=== PATIENT | male | born 1965 | race Caucasian/White ===

== ENCOUNTER 2020-05-12 07:22 | Outpatient (CLI) | payer OTHER, SELFPAY ==
--- NOTE | ~2020-05-12 | NM_ITS ---
EXAMINATION: NM hepatobiliary w pharm DATE: 05/12/2020 10:50 INDICATION: Right upper quadrant abdominal pain COMPARISON: None. TECHNIQUE: 5.2 mCi Tc-99m mebrofenin (Choletec) was administered intravenously. Scintigraphic images of the abdomen were obtained for one hour. 2.6 mcg sincalide (Kinevac) was administered by slow intr avenous infusion, and imaging was continued for 30 minutes. Gallbladder ejection fraction was calcula james by the technologist. FINDINGS: There is normal clearance of radiotracer from the blood pool. There is homogeneous tracer uptake by t he liver. Activity progresses to the gallbladder and bowel. The gallbladder ejection fraction (GBEF) is 94% (normal 10-90%, but most patient with gallbladder dysfunction have GBEF < 35% which does over lap with the normal range). IMPRESSION: 1. Elevated gallbladder ejection fraction is 94% consistent with biliary hyperkinesis. Reviewed, dictated and finalized at location A. IMPRESSION: 1. Elevated gallbladder ejection fraction is 94% consistent with biliary hyper kinesis.
== END 2020-05-12 07:23 | disposition home or self-care (01) ==
LOC: ANHIMG 07:26
PROVIDERS: PCP Family Medicine Adolescent Medicine; Visit Provider Internal Medicine Gastroenterology
DX: R10.11 Right upper quadrant pain (principal)
CPT/HCPCS: 78227; A9537; J2805

== ENCOUNTER 2021-05-30 13:44 | Emergency (ER) | payer OTHER, SELFPAY ==
--- NOTE | ~2021-05-30 | CT_ITS ---
EXAMINATION: CT abdomen pelvis w con DATE: 05/30/2021 18:47 INDICATION: Lower abdominal pain. TECHNIQUE: Computed tomography (CT) of the abdomen and pelvis was performed with 100 mL Omnipaque 350 intravenous contrast. Automated exposure control and iterative reconstruction technique were employe d. The dose-length product was 1645.98 mGy-cm. COMPARISON: CT abdomen and pelvis 10/26/2016 FINDINGS: The visualized portions of the lung bases demonstrate minimal atelectasis. No pleural effus ion. The heart size is normal. No pericardial effusion. There is diffuse hepatic steatosis. The gallb ladder, spleen, pancreas, adrenal glands, and kidneys are normal. The prostate is mildly enlarged. Th ere is diverticulosis of the colon without evidence of diverticulitis. There are no dilated loops of bowel. The appendix is normal. There are no pathologically enlarged lymph nodes. There is no free int raperitoneal fluid. There is moderate lumbar spondylosis. IMPRESSION: 1. Diffuse hepatic steatosis. Reviewed, dictated and finalized at location A.
[2021-05-30 13:57] VITALS: BP 147/82; PULSE 97; RESP 20; TEMP 36.2; O2SAT 98
[2021-05-30 14:21] LABS: Basophils Absolute Auto 0.1 K/mm3 (0.0-0.1); Basophils Percent Auto 0.5 % (0.2-1.2); Eosinophils Absolute Auto 0.2 K/mm3 (0-0.3); Eosinophils Percent Auto 1.8 % (0-4.4); Hematocrit 40.2 % (42.0-52.0); Hemoglobin 13.8 g/dL (14.0-18.0); Immature Granulocyte Absolute 0.03 K/mm3 (0.00-0.031); Immature Granulocyte Percent A 0.3 % (0-0.5); Lymphocytes Percent Auto 15.6 % (18.3-44.2); Mean Corpuscular HGB Conc 34.3 g/dl (32-36); Mean Corpuscular Hemoglobin 30.6 pg (26-34); Mean Corpuscular Volume 89.1 fl (80-100); Mean Platelet Volume 8.5 fl (7.4-10.4); Monocytes Absolute Auto 0.9 K/mm3 (0.1-0.6); Monocytes Percent Auto 8.1 % (2.6-8.5); Neutrophils Percent Auto 73.7 % (45.5-73.1); Platelet Count Result 246 k/mm3 (150-375); Red Blood Count 4.51 M/mm3 (4.6-6.20); Red Cell Distribution Width 12.9 % (11.5-14.5); White Blood Count 10.9 K/mm3 (4.5-10.0)
[2021-05-30 14:35] LABS: Alanine Aminotransferase 68 U/L (4-50); Alkaline Phosphatase 65 U/L (38-126); Anion Gap 11 mmol/L (8-16); Aspartate Amino Transferase 50 U/L (17-59); Bilirubin,Total 0.6 mg/dL (0.2-1.3); Blood Urea Nitrogen 14 mg/dL (9-20); Calcium 9.7 mg/dL (8.4-10.2); Carbon Dioxide 25 mmol/L (22-30); Chloride 93 mmol/L (98-107); Estimated CRCL calculation 110 ml/min; Estimated Glomerular Filt Rate > 60; Glucose 121 mg/dL (65-110); Lipase 81 U/L (23-300); Potassium 4.4 mmol/L (3.4-5.0); Sodium 129 mmol/L (137-145)
[2021-05-30 15:18] LABS: Add Urine Microscopic? YES; Appearance Urine Clear (Clear); Bilirubin Urine Negative (Negative); Blood Urine 1+ (Negative); Color Urine Straw (Yellow); Glucose Urine UA Negative (Negative); Ketones Urine Negative (Negative); Leukocyte Esterase Ur Negative LEU/UL (Negative); Nitrate Urine Negative (Negative); Protein Urine Negative (Negative); RBC Urine 0-2 /hpf (0-2); Urobilinogen Urine Negative mg/dL (<2.0)
[2021-05-30 15:23] LABS: Specific Grav Ur 1.004 (1.001-1.035)
--- NOTE | 2021-05-30 15:43 | PC.NURSE ---
brought back to triage bay 2 for a blood sugar
[2021-05-30 15:47] LABS: Glucose Point of Care 111 mg/dl (65-105)
[2021-05-30 17:40] VITALS: BP 165/81; PULSE 100; RESP 20; O2SAT 97
--- NOTE | 2021-05-30 18:01 | ED.ABDPAIN ---
HPI - Abdominal Pain General Chief Complaint: Abdominal Pain Stated Complaint: lower abd pain Time Seen by Provider: 05/30/21 17:45 Source: patient Mode of arrival: ambulatory Limitations: no limitations History of Present Illness HPI narrative: Patient is a 55-year-old male complaining of lower abdominal pain, sharp, 9 out of 10, nonradiating, started this afternoon. Denies any chest pain, shortness of breath, nausea, vomiting, fever, chills or urinary symptoms. Related Data Home Medications Medication Instructions Recorded Confirmed lisinopril-hydrochlorothiazide tablet 05/30/21 05/30/21 metformin mg PO 05/30/21 metoprolol tartrate 05/30/21 tizanidine mg 05/30/21 Allergies Allergy/AdvReac Type Severity Reaction Status Date / Time metoclopramide Allergy Unknown Agitated Verified 05/30/21 18:03 shrimp Allergy Unknown Verified 05/30/21 18:03 BEE STING Allergy Mild Unknown Uncoded 05/30/21 18:03 Review of Systems Review of Systems: All systems reviewed & are unremarkable except as noted in HPI and below Constitutional: Constitutional: Denies body ache(s), Denies chills, Denies excessive sweating, Denies fatigue, Denies fever(s), Denies headache(s), Denies lethargy, Denies malaise, Denies weakness and Denies weight loss Eyes: Eyes: Denies blurry vision, Denies change in vision and Denies loss of vision ENT: Denies dizziness, Denies ear discharge, Denies headache(s), Denies lip swelling, Denies epistaxis, Denies nasal congestion, Denies neck pain, Denies throat swelling and Denies tongue swelling Cardiovascular: Cardiovascular: Denies chest pain, Denies chest pain at rest, Denies chest pain with activity, Denies diaphoresis, Denies rapid heart rate, Denies edema, Denies irregular heart rhythm, Denies lightheadedness, Denies palpitations, Denies dyspnea and Denies dyspnea on exertion Respiratory: Respiratory: Denies chest congestion, Denies cough, Denies hemoptysis, Denies dyspnea and Denies dyspnea on exertion Gastrointestinal: Gastrointestinal: Denies melena, Denies hematochezia, Denies diarrhea, Denies nausea, Denies vomiting and Denies hematemesis Musculoskeletal: Musculoskeletal: Denies abnormal gait, Denies deformity, Denies joint swelling, Denies limited range of motion, Denies neck pain and Denies numbness Neurologic: Denies Abnormal speech present, Denies abnormal gait, Denies confusion, Denies dizziness, Denies headache(s), Denies focal weakness, Denies loss of vision, Denies numbness, Denies Other visual disturbances, Denies Sensory deficit (Neuro) and Denies weakness Psychiatric: Psychiatric: Denies confusion, Denies depression, Denies auditory hallucinations, Denies homicidal ideation and Denies suicidal ideation Endocrine: Endocrine: Denies cold intolerance, Denies excessive sweating, Denies fatigue, Denies heat intolerance and Denies palpitations Hematologic/Lymphatic: Hematologic/Lymphatic: Denies easy bleeding and Denies easy bruising Allergic/Immunologic: Allergic/Immunologic: Denies lip swelling, Denies throat swelling and Denies tongue swelling PMFSH Family History Family History Sibling Depression Father Family history of Parkinson's disease Other Cerebrovascular accident Diabetes mellitus Family history of allergic disorder Family history of arthritis Family history of cardiovascular disease Hypertension Social History Social History Alcohol intake: never Exam Const: General: cooperative, healthy appearing, comfortable, no acute distress, well developed, alert and awake; No confusion Orientation/consciousness: oriented to person, oriented to place, oriented to time, patient oriented x3 and No confusion Limitations: no limitations HENMT: Head: normal to inspection, normocephalic and atraumatic Ears: hearing grossly normal bilaterally, TM normal on the right and TM n
[2021-05-30 19:43] VITALS: BP 144/68; PULSE 92; RESP 18; O2SAT 98
[2021-05-30] MEDS: KETOROLAC 30 MG/ML VIAL (*BKC) IV PUSH (20:09)
== END 2021-05-30 20:41 | disposition home or self-care (01) ==
PROVIDERS: Emergency Medicine; Emergency Provider Emergency Medicine; PCP Family Medicine Adolescent Medicine
DX: R10.30 Lower abdominal pain, unspecified (principal)
CPT/HCPCS: 36415; 74177; 80053; 81001; 82948; 83690; 85025; 96374; 99284; J1885; Q9967

== ENCOUNTER 2021-09-10 19:45 | Emergency (ER) | payer OTHER, SELFPAY ==
[2021-09-10] VITALS (16 sets, daily range): BP systolic 135–164; BP diastolic 52–90; PULSE 79–98; RESP 15–24; TEMP 36.3; O2SAT 94–98
--- NOTE | ~2021-09-10 | CT_ITS ---
EXAMINATION: CTA chest PE protocol DATE: 09/11/2021 00:00 INDICATION: Chest pain TECHNIQUE: Computed tomography (CT) pulmonary angiogram of the chest was performed with 100 mL Omnipa que-350 intravenous contrast. Additional 3D reconstructions utilizing coronal maximum intensity proje ction (MIP) were performed. Automated exposure control and iterative reconstruction technique were em ployed. The dose-length product was 1007.80 mGy-cm. COMPARISON: None FINDINGS: . contrast opacification of the pulmonary arteries. There is mild streak artifact from dense contrast in the superior vena cava and right atrium. Mild scattered respiratory motion artifact which does no t significantly limit evaluation. No pulmonary embolism. No pneumonia, pulmonary edema or other pulmo nary infiltrates. No pleural effusion or pneumothorax. Heart size is normal. No pericardial effusion. Thoracic aorta is normal in caliber with no dissection. No pathologically enlarged abdominal or pelv ic lymphadenopathy. Diffuse hepatic steatosis. There are bridging osteophytes at multiple levels in t he lower thoracic spine, consistent with diffuse idiopathic skeletal hyperostosis (DISH). IMPRESSION: 1. No pulmonary embolism or other acute cardiopulmonary disease. Reviewed, dictated and finalized at location A. ORATE CLAIMS EXAMINER
--- NOTE | ~2021-09-10 | XR_ITS ---
EXAMINATION: XR chest 2V DATE: 09/10/2021 22:19 INDICATION: Left-sided chest pain TECHNIQUE: PA and lateral views of the chest were obtained. COMPARISON: Chest radiograph dated 12/07/11 FINDINGS: The lungs remain clear with no focal airspace opacities, pulmonary edema, pleural effusion or pneumot horax. The cardiomediastinal silhouette is normal. Visualized bones and soft tissues are unremarkable . IMPRESSION: 1. No acute cardiopulmonary disease. Reviewed, dictated and finalized at location A. STRIAL HYGENIST
--- NOTE | 2021-09-10 20:16 | ECG_ITS ---
Measurements Intervals [place] Rate: 77 P: -2 OK: 141 QRS: -16 QRSD: 93 T: 15 QT: 356 QTc: 403 Interpretive Statements SINUS RHYTHM NORMAL ECG Electronically Signed On 09-11-2021 6:02:05 PIPE JEEPER by Blayne Noonan D.O.
[2021-09-10 22:40] LABS: Basophils Absolute Auto 0.1 K/mm3 (0.0-0.1); Basophils Percent Auto 0.6 % (0.2-1.2); Eosinophils Absolute Auto 0.4 K/mm3 (0-0.3); Eosinophils Percent Auto 3.7 % (0-4.4); Hematocrit 38.9 % (42.0-52.0); Hemoglobin 13.2 g/dL (14.0-18.0); Immature Granulocyte Absolute 0.04 K/mm3 (0.00-0.031); Immature Granulocyte Percent A 0.4 % (0-0.5); Lymphocytes Absolute Auto 2.33 K/mm3 (0.9-3.2); Mean Corpuscular HGB Conc 33.9 g/dl (32-36); Mean Corpuscular Hemoglobin 30.3 pg (26-34); Mean Corpuscular Volume 89.4 fl (80-100); Mean Platelet Volume 8.6 fl (7.4-10.4); Monocytes Absolute Auto 0.8 K/mm3 (0.1-0.6); Monocytes Percent Auto 8.1 % (2.6-8.5); Neutrophils Absolute Auto 6.5 K/mm3 (1.3-6.7); Neutrophils Percent Auto 64.2 % (45.5-73.1); Platelet Count Result 283 k/mm3 (150-375); Red Blood Count 4.35 M/mm3 (4.6-6.20); Red Cell Distribution Width 12.8 % (11.5-14.5); White Blood Count 10.2 K/mm3 (4.5-10.0)
[2021-09-10 22:49] LABS: INR 0.9; Prothrombin Time 11.6 Seconds (11.1-14.7)
[2021-09-10 22:50] LABS: Partial Thromboplastin Time 33.2 SECONDS (22.3-36.8)
[2021-09-10 22:50] LABS: Alanine Aminotransferase 65 U/L (4-50); Albumin Level 4.9 g/dL (3.5-5.1); Alkaline Phosphatase 57 U/L (38-126); Anion Gap 17 mmol/L (8-16); Aspartate Amino Transferase 45 U/L (17-59); Bilirubin,Total 0.7 mg/dL (0.2-1.3); Blood Urea Nitrogen 16 mg/dL (9-20); Calcium 10.2 mg/dL (8.4-10.2); Carbon Dioxide 22 mmol/L (22-30); Chloride 87 mmol/L (98-107); Estimated CRCL calculation 101 ml/min; Estimated Glomerular Filt Rate > 60; Glucose 121 mg/dL (65-110); Lactic Acid Reflex 2.2 mmol/L (0.7-2.1); Lipase 73 U/L (23-300); Potassium 4.3 mmol/L (3.4-5.0); Sodium 126 mmol/L (137-145)
[2021-09-10 22:52] LABS: D Dimer 0.32 ug/mL (<0.48)
[2021-09-10 22:54] LABS: Alanine Aminotransferase 65 U/L (4-50); Alkaline Phosphatase 57 U/L (38-126); Anion Gap 14 mmol/L (8-16); Aspartate Amino Transferase 48 U/L (17-59); Bilirubin,Total 0.7 mg/dL (0.2-1.3); Blood Urea Nitrogen 16 mg/dL (9-20); Calcium 10.2 mg/dL (8.4-10.2); Carbon Dioxide 26 mmol/L (22-30); Chloride 87 mmol/L (98-107); Estimated CRCL calculation 93 ml/min; Estimated Glomerular Filt Rate > 60; Glucose 121 mg/dL (65-110); Magnesium 1.4 mg/dL (1.6-2.3); Potassium 4.2 mmol/L (3.4-5.0); Sodium 127 mmol/L (137-145)
[2021-09-10 23:02] LABS: Troponin I < 0.012 ng/mL (0.000-0.034)
[2021-09-10 23:03] LABS: Troponin I < 0.012 ng/mL (0.000-0.034)
[2021-09-10 23:30] LABS: Add Urine Microscopic? YES; Appearance Urine Clear (Clear); Bilirubin Urine Negative (Negative); Blood Urine 1+ (Negative); Color Urine Straw (Yellow); Glucose Urine UA Negative (Negative); Ketones Urine Negative (Negative); Leukocyte Esterase Ur Negative LEU/UL (Negative); Mucus Urine Rare /lpf; Nitrate Urine Negative (Negative); Protein Urine Negative (Negative); RBC Urine 0-2 /hpf (0-2); Specific Grav Ur 1.006 (1.001-1.035); Urobilinogen Urine Negative mg/dL (<2.0); WBC Urine 0-3 /hpf
--- NOTE | 2021-09-10 23:30 | PC.NURSE ---
Pt to ED 1 c/o pain to medial chest with deep inspiration x 1 day. hx of PE 7 years ago. no longer on anticoagulants. also c/o bilateral calf pain and cramping x 1 day. reports pt does have prior hx of muscle cramps. pt a/o x 4. resps even/nonlabored. no s/s of acute distress. will continue to monitor.
--- NOTE | 2021-09-11 00:05 | ED.GENADULT ---
HPI - General Adult General Chief complaint: Chest Pain Stated complaint: SOB, Cough, Chest pain Time Seen by Provider: 09/10/21 22:08 History of Present Illness HPI narrative: Patient 55-year-old gentleman who presents the emergency department with chief complaint of left-sided chest pain and lower extremity pain. The patient reports he has history of DVT and history of pulmonary embolism the patient states this was over 6 years ago currently just taking a daily aspirin and is currently not on any anticoagulants. The patient states he started having some discomfort in the left side of his chest and was scared that he may have a pulmonary embolism. The patient states that he has had a little bit of discomfort in his legs as well and reports that he is a DVT. Patient denies shortness of breath denies fever reports that he has been vaccinated for Covid. Related Data Home Medications Medication Instructions Recorded Confirmed lisinopril-hydrochlorothiazide tablet 05/30/21 05/30/21 metformin mg PO 05/30/21 metoprolol tartrate 05/30/21 tizanidine mg 05/30/21 Allergies Allergy/AdvReac Type Severity Reaction Status Date / Time metoclopramide Allergy Unknown Agitated Verified 05/30/21 18:03 shrimp Allergy Unknown Verified 05/30/21 18:03 BEE STING Allergy Mild Unknown Uncoded 05/30/21 18:03 Review of Systems Review of Systems: A 10 system review of systems was completed on the patient and is negative except for what is stated in the HPI. Nursing and ancillary documentation was reviewed. PMFSH Family History Family History Sibling Depression Father Family history of Parkinson's disease Other Cerebrovascular accident Diabetes mellitus Family history of allergic disorder Family history of arthritis Family history of cardiovascular disease Hypertension Social History Social History Alcohol intake: never Exam Narrative: GENERAL: Well-appearing, well-nourished, and in no acute distress. HEAD: Normocephalic, atraumatic. EYES: PERRLA and EOMI. ENT: Nares clear, no rhinorrhea or epistaxis. Mucous membranes moist. NECK: Supple. CHEST: Clear to auscultation. No respiratory distress. HEART: Regular rate and rhythm. No murmur heard. Normal peripheral pulses. ABDOMEN: Soft, nontender, nondistended, normal active bowel sounds. EXTREMITIES: Normal range of motion. No edema. SKIN: Warm, dry, no rash. NEURO: No focal deficits. Alert and oriented x3. PSYCH: Normal mood and affect. Course Course Emergency Course: EKG is normal sinus rhythm rate of [address] elevation or ST depression Chest x-ray PA lateral shows no evidence of focal infiltrate or acute abnormality CT chest read by statrad shows no evidence of pulmonary embolism or focal filtrate Vital Signs Vital signs: Vital Signs Temperature 36.3 C L 09/10/21 20:17 Pulse Rate 80 09/10/21 20:17 Respiratory Rate 18 09/10/21 20:17 Blood Pressure 163/90 H 09/10/21 20:17 Pulse Oximetry 98 09/10/21 20:17 Temperature 36.3 C L 09/10/21 20:17 Pulse Rate 84 09/11/21 00:13 Respiratory Rate 20 09/11/21 00:13 Blood Pressure 152/52 H 09/10/21 23:47 Pulse Oximetry 96 09/11/21 00:13 Medical Decision Making Vital Signs Vital Signs: Vital Signs Temperature 36.3 C L 09/10/21 20:17 Pulse Rate 80 09/10/21 20:17 Respiratory Rate 18 09/10/21 20:17 Blood Pressure 163/90 H 09/10/21 20:17 Pulse Oximetry 98 09/10/21 20:17 Temperature 36.3 C L 09/10/21 20:17 Pulse Rate 84 09/11/21 00:13 Respiratory Rate 20 09/11/21 00:13 Blood Pressure 152/52 H 09/10/21 23:47 Pulse Oximetry 96 09/11/21 00:13 Lab Data Result diagrams: 09/10/21 22:31 09/10/21 22:31 Labs: Lab Results 09/10/21 09/10/21 09/10/21 Range/Units 22:31 22:31 22:31 WBC 10.2 H (4
[2021-09-11 00:13] VITALS: PULSE 84; RESP 20; O2SAT 96
--- NOTE | 2021-09-11 00:14 | PC.NURSE ---
back from ct. no s/s of distress. back on cardiac/bp/o2 monitor.
[2021-09-11 00:15] VITALS: PULSE 83; RESP 19; O2SAT 95
[2021-09-11 00:17] VITALS: BP 163/65; PULSE 83; RESP 17; O2SAT 97
[2021-09-11 00:30] VITALS: PULSE 86; RESP 18; O2SAT 95
[2021-09-11] MEDS: ENOXAPARIN 80 MG/0.8 ML SYRINGE 75 MG SUB-Q (00:41)
[2021-09-11] MEDS: ENOXAPARIN 60 MG/0.6 ML SYRINGE SUB-Q (00:46)
[2021-09-11 01:38] LABS: Reflex Lactic Acid Yes or No Add Lactic
== END 2021-09-11 01:20 | disposition home or self-care (01) ==
PROVIDERS: Emergency Provider Emergency Medicine; PCP Family Medicine Adolescent Medicine
DX: R07.89 Other chest pain (principal); M79.604 Pain in right leg; Z86.718 Personal history of other venous thrombosis and embolism; Z86.711 Personal history of pulmonary embolism; Z79.84 Long term (current) use of oral hypoglycemic drugs
CPT/HCPCS: 36415; 71046; 71275; 80053; 81001; 83605; 83690; 83735; 84484; 85025; 85380; 85610; 85730; 93005; 96372; 99284; J1650; Q9967

== ENCOUNTER 2021-09-11 10:28 | Outpatient (CLI) | payer OTHER, SELFPAY ==
--- NOTE | ~2021-09-11 | US_ITS ---
EXAMINATION: US venous doppler LE EXAM DATE: 09/11/2021 11:16 INDICATION: Bilateral leg pain and swelling. TECHNIQUE: Multiple grayscale, color flow and Doppler images of the lower extremity deep venous syste ms bilaterally were obtained and reviewed. Comparison is made to prior examination from 2019. FINDINGS: Right side: The right common femoral, femoral and profunda veins demonstrate normal color flow, respi ratory variation, augmentation and compressibility. Compressibility, color flow confirmed within the right popliteal, posterior tibial, peroneal, and greater saphenous veins. Left side: The left common femoral, femoral and profunda veins demonstrate normal color flow, respira tory variation, augmentation and compressibility. Compressibility, color flow confirmed within the l eft popliteal, posterior tibial, peroneal, and greater saphenous veins. IMPRESSION: No lower extremity deep venous thrombosis bilaterally. Reviewed, dictated and finalized at location B. OSIVES OPERATOR
== END 2021-09-11 10:29 | disposition home or self-care (01) ==
LOC: ANHIMG 10:33
PROVIDERS: PCP Family Medicine Adolescent Medicine; Visit Provider Emergency Medicine
DX: M79.89 Other specified soft tissue disorders (principal)
CPT/HCPCS: 93970

== ENCOUNTER 2021-12-01 07:43 | Outpatient (CLI) | payer OTHER, SELFPAY ==
--- NOTE | ~2021-12-01 | NM_ITS ---
EXAMINATION: NM hepatobiliary wo pharm DATE: 12/01/2021 10:49 INDICATION: Unspecified abdominal pain. COMPARISON: Ultrasound 12/01/2021 TECHNIQUE: 5.4 mCi Tc-99m mebrofenin (Choletec) was administered intravenously. Scintigraphic images of the abdomen were obtained for one hour. Then, the patient drank 8 oz Ensure, and imaging was cont inued for 60 minutes. FINDINGS: There is normal clearance of radiotracer from the blood pool. There is homogeneous tracer u ptake by the liver. Activity progresses to the bowel and gallbladder. Gallbladder ejection fraction (GBEF) was 47%. Note that with this technique, normal GBEF >= 33%. IMPRESSION: 1. Normal hepatobiliary scintigraphy. Reviewed, dictated and finalized at location A. STANT NURSE MANAGER
--- NOTE | ~2021-12-01 | US_ITS ---
EXAMINATION: US abdomen limited EXAM DATE: 12/01/2021 08:18 INDICATION: R10.9 - Unspecified abdominal pain. TECHNIQUE: Multiple grayscale and Doppler images of the abdomen right upper quadrant were obtained (b y a technologist who performed the scan) and subsequently reviewed. Comparison is made to prior exami nation from 07/28/2019. FINDINGS: The pancreatic head and body are normal in appearance. The pancreatic tail is not visual ized. There is echogenic liver parenchyma, hepatic steatosis. There are no focal liver lesions iden tified. There is no evidence of intrahepatic biliary duct dilation. Portal venous flow was seen in the hepatopedal, normal direction and has normal Doppler waveform. No right-sided hydronephrosis. Common bile duct measures 4 mm, which is normal. The gallbladder wall is normal in thickness, with ex pected amount of distention. No sonographic evidence of pericholecystic fluid. There is no cholelit hiases. Technologist performing exam reports patient did not demonstrate sonographic Regalado's sign. Please note that this sign is less reliable in patients who have received pain medication. IMPRESSION: 1. Hepatic steatosis. Reviewed, dictated and finalized at location B. Y APPLICATOR IMPRESSION: 1. Hepatic steatosis.
== END 2021-12-01 07:44 | disposition home or self-care (01) ==
PROVIDERS: PCP Family Medicine Adolescent Medicine; Visit Provider Surgery
DX: R10.9 Unspecified abdominal pain (principal)
CPT/HCPCS: 76705; 78226; A9537

== ENCOUNTER 2021-12-28 13:06 | Outpatient (CLI) | payer OTHER, SELFPAY ==
[2021-12-28 13:47] LABS: Alanine Aminotransferase 48 U/L (4-50); Albumin Level 4.6 g/dL (3.5-5.1); Alkaline Phosphatase 61 U/L (38-126); Amylase 93 U/L (30-110); Aspartate Amino Transferase 47 U/L (17-59); Bilirubin,Total 0.5 mg/dL (0.2-1.3); Lipase 76 U/L (23-300)
[2021-12-28 13:48] LABS: Anion Gap 11 mmol/L (8-16); Blood Urea Nitrogen 14 mg/dL (9-20); Calcium 8.8 mg/dL (8.4-10.2); Carbon Dioxide 23 mmol/L (22-30); Chloride 93 mmol/L (98-107); Estimated Glomerular Filt Rate > 60; Glucose 151 mg/dL (65-110); Potassium 4.1 mmol/L (3.4-5.0); Sodium 127 mmol/L (137-145)
== END 2021-12-28 13:07 | disposition home or self-care (01) ==
LOC: ANHSURGERY 13:10
PROVIDERS: Anesthesiology; PCP Family Medicine Adolescent Medicine; Visit Provider Surgery
DX: Z01.812 Encounter for preprocedural laboratory examination (principal); K81.1 Chronic cholecystitis
CPT/HCPCS: 36415; 80048; 80076; 82150; 83690; 86850; 86900; 86901

== ENCOUNTER 2022-01-04 01:43 | Day surgery (SDC) | payer OTHER, SELFPAY ==
[2021-12-27 15:44] VITALS: BMI 43.0
--- NOTE | 2021-12-27 16:14 | PC.NURSE ---
Report to the Outpatient Waiting Room, entrance under the green pavilion located off [facility], at time _10:00AM on date ___01/04/22____. OR Time: __12:00PM . - You and your visitor will be asked a series of questions to screen for COVID 19 for your protection. - A mask is required within the hospital. Preoperative COVID Testing Requirements: No COVID Test needed if: (proof is required; if not received patient will have Rapid Test prior to entry) - Patient has received COVID Vaccine at least 14 days prior to procedure date or - Patient has positive COVID test result within last 90 days of surgery date. COVID Test needed if above criteria is not met If not COVID vaccinated a COVID test must be conducted within 72 hours of surgery and patient is asked to isolate self from time of testing until procedure. You will go to the [facility] for your COVID testing. [email or web address] is located at the corner of [address] from [facility]. You will only be called if COVID results are positive and your surgeon may reschedule your elective surgery date. Patients may have clear liquids (water, carbonated beverages, clear teas, apple juice) until 3 hours prior to surgery with a maximum of 20 ounces. - No food from midnight until time of surgery - Infants may have breast milk until 4 hours before surgery, formula 6 hours prior to surgery. - Children will be allowed to drink immediately following surgery. If applicable, please bring a bottle or sippy cup to assist with drinking. Juice, water, soda, and popsicles are readily available. For infants on formula, please bring formula the day of surgery. Pacifiers are allowed. Take the following medications with a SIP of water the morning of surgery: _INHALER NEEDED, METOPROLOL Medications to discontinue per physician ____HOLD ALL VITAMINS/SUPPLEMENTS 3 DAYS PRE-OP Date to take last dose 4/3/22 Please no make-up, nail tanzanian, hairspray, perfume, deodorant, or body powder the day of surgery. No jewelry (including any body piercings) or valuables the day of surgery, leave them at home. Please take a shower or bath the night before, or the morning of, surgery with an antibacterial soap. Wear comfortable, loose fitting clothing. Children are encouraged to wear pajamas. - Jewelry must be removed prior to entering the operating room. Rings and piercings that are not removed may be cut off. - The hospital will not accept responsibility for valuables. - Please leave all valuables, including medications, at home the day of surgery. HIBICLENS SHOWER MORNING OF SURGERY If you are going home after surgery, a licensed truck driver salesperson must drive you home. - NO public transportation without another adult. - We recommend that an adult stay with you for 24 hours following discharge. - We also recommend that you do not drive, make important decision, drink alcoholic beverages, or take any drugs that were not prescribed by your health care provider for at least 24 hours after your discharge time. For Pediatric surgeries, we recommend two adults accompany the child home (only one inside the building at this time). One visitor will be allowed to accompany the patient into the hospital. Patients visitor will be instructed to remain with patient at all times or leave the building. We will allow the visitor to come back to the postoperative area when patient is ready. Follow any additional instructions given to you from your surgeon. Telephone instructions given to ___PATIENT and asked if any additional questions and then verbalized understanding. Patient advised to call surgeon office or pre surgery nurse liaison [phone] if any additional questions.
--- NOTE | 2022-01-01 16:51 | PM.SD2 ---
Same Day Admit/Disch: HPI History of Present Illness Chief complaint: Acalculous Chronic Cholecystitis Narrative: Morris Vallejo is a 56 year old male Who has had postprandial right upper quadrant abdominal pain after eating for about 3 years. It is worse after fatty meals. In the last 12 months it has been particularly bothersome with severe pain for a couple of hours after eating. He has had a right upper quadrant ultrasound which showed only hepatic steatosis. He has also had a HIDA scan which showed a gallbladder ejection fraction of 47%. His clinical symptoms however are strongly suggestive of recurrent biliary colic and chronic cholecystitis. He is taken to surgery now for laparoscopic cholecystectomy. [facility] Past Medical History Medical History Diabetes type 2, controlled Hepatic steatosis History of pulmonary embolism Hypertension Mixed hyperlipidemia Personal history of nicotine dependence quit 2010 Surgical History Surgical History History of excision of pilonidal cyst History of tonsillectomy Family History Family History Sibling Depression Father Family history of Parkinson's disease Mother Diabetes mellitus Heart disease Breast cancer Carcinoma of colon Grandparent Cerebrovascular accident Acute myocardial infarction Other Family history of allergic disorder Family history of arthritis Family history of cardiovascular disease Hypertension Social History Social History Smoking packs per day: 3 Smoking cigarettes per day: 60.0 Years smoked: 20 Smoking pack-years: 60.00 Smoking status: Former smoker Tobacco type: cigarettes Second hand tobacco smoke exposure: No Smoking end date: 03/30/05 Alcohol intake: never Substance use: never Substance use type: does not use Living arrangements: with family Additional living arrangements comments: 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 Gender identity (if verbalized by the patient): Male Sexual Orientation (if Verbalized by the Patient): Straight or Heterosexual Spiritual care concerns: No Agree to blood products: Yes Same Day Admit/Disch: Med Pre-admit Medications Home Medications Medication Instructions Recorded Confirmed Type Ever's wort 300 mg tablet 300 mg PO TID 11/09/21 01/04/22 History albuterol sulfate 90 mcg/actuation 2 inh INHALATION Q4H PRN #8.5 g 11/09/21 12/27/21 Rx aerosol inhaler ezetimibe 10 mg tablet 10 mg PO DAILY 11/09/21 12/27/21 History lisinopril 20 1 tablet PO QACLUNCH tablet 11/09/21 12/27/21 History mg-hydrochlorothiazide 25 mg tablet omeprazole 20 mg tablet,delayed 20 mg PO QAM 11/09/21 12/27/21 History release tizanidine 4 mg tablet 8 mg PO HS tablet 11/09/21 12/27/21 History metformin 1,000 mg PO BID 12/27/21 12/27/21 History metoprolol tartrate 50 mg PO QACLUNCH 12/27/21 01/04/22 History tizanidine 4 mg PO BID 12/27/21 12/27/21 History hydrocodone-acetaminophen 1 - 2 tablet PO Q6H PRN #10 tablet 01/04/22 Rx ketorolac 10 mg PO Q6H 4 Days #16 tablet 01/04/22 Rx Exam Const: General: cooperative, comfortable, no acute distress, alert, awake and Physically active Nutritional Appearance: obese Orientation/consciousness: patient oriented x3 HENMT: Head: normocephalic and atraumatic Mouth: Yes Normal oral and palatal mucosa present Eyes: Conjunctivae: conjunctivae normal Pupils: Equal, round and reactive pupils present EOM: EOMs intact bilaterally Neck: Neck: normal visual inspection, no lymphadenopathy and nontender Resp: Effort & Inspection: normal respiratory effort Auscultation: clear to auscultation bilaterally Cardio: Rate: regular rate Rhythm: regular rhythm Heart sounds: no gallops, no murmurs and no rubs
[2022-01-04] VITALS (11 sets, daily range): BP systolic 103–137; BP diastolic 55–85; PULSE 65–84; RESP 14–18; TEMP 36.4–36.7; O2SAT 94–99
[2022-01-04] MEDS: KETOROLAC 15 MG/ML VIAL (*BKC) IV PUSH (10:30)
[2022-01-04] MEDS: LACTATED RINGERS 1,000 ML 30 ML IV CONT ×3 (10:30→15:08)
[2022-01-04] MEDS: ACETAMINOPHEN 500 MG TABLET 1000 MG PO (10:30)
[2022-01-04 10:48] LABS: Glucose Point of Care 119 mg/dl (65-105)
--- NOTE | 2022-01-04 10:51 | WPDANESEPPF ---
Anes - Initial Pre Proc Eval Procedure: Operation Date: 01/04/22 12:00 Proposed Procedures p Laparoscopic Cholecystectomy - Nacho Ying MD Date/Time: 01/04/22 10:51 Surgeon: Nacho Ying MD Pre Op Diagnosis: Acalculous Chronic Cholecystitis Patient Data Age: 56 Gender: M Height: 1.78 m Weight: 136 kg Allergies Allergy/AdvReac Type Severity Reaction Status Date / Time shrimp Allergy Intermediate THROAT Verified 12/27/21 15:37 SWELLING metoclopramide Allergy Unknown Agitated Verified 12/27/21 15:37 BEE STING Allergy Mild WELTS, N/V Uncoded 12/27/21 15:37 Home Medications Medication Instructions Recorded Confirmed Type Sexton's wort 300 mg tablet 300 mg PO TID 11/09/21 12/27/21 History albuterol sulfate 90 mcg/actuation 2 inh INHALATION Q4H PRN #8.5 g 11/09/21 12/27/21 Rx aerosol inhaler ezetimibe 10 mg tablet 10 mg PO DAILY 11/09/21 12/27/21 History lisinopril 20 1 tablet PO QACLUNCH tablet 11/09/21 12/27/21 History mg-hydrochlorothiazide 25 mg tablet omeprazole 20 mg tablet,delayed 20 mg PO QAM 11/09/21 12/27/21 History release tizanidine 4 mg tablet 8 mg PO HS tablet 11/09/21 12/27/21 History metformin 1,000 mg PO BID 12/27/21 12/27/21 History metoprolol tartrate 50 mg PO QACLUNCH 12/27/21 12/27/21 History tizanidine 4 mg PO BID 12/27/21 12/27/21 History Laboratory Tests 01/04/22 01/04/22 10:38 10:40 Sodium Pending Potassium Pending Chloride Pending Carbon Dioxide Pending Anion Gap Pending BUN Pending Creatinine Pending Estim Creat Clear Calc Pending Estimated GFR Pending Glucose Pending POC Capillary Glucose 119 mg/dl H mg/dl (65-105) Calcium Pending Patient hx anesthesia problems: none Family hx anesthesia problems: none Results Review: All pre-operative results and documents have been reviewed as part of the pre-operative evaluation. [facility] [place] Past Medical History Medical History Diabetes type 2, controlled Hepatic steatosis History of pulmonary embolism Hypertension Mixed hyperlipidemia Personal history of nicotine dependence quit 2010 Surgical History Surgical History History of excision of pilonidal cyst History of tonsillectomy Family History Family History Sibling Depression Father Family history of Parkinson's disease Mother Diabetes mellitus Heart disease Breast cancer Carcinoma of colon Grandparent Cerebrovascular accident Acute myocardial infarction Other Family history of allergic disorder Family history of arthritis Family history of cardiovascular disease Hypertension Social History Social History Smoking packs per day: 3 Smoking cigarettes per day: 60.0 Years smoked: 20 Smoking pack-years: 60.00 Smoking status: Former smoker Tobacco type: cigarettes Second hand tobacco smoke exposure: No Smoking end date: 03/30/05 Alcohol intake: never Substance use: never Substance use type: does not use Living arrangements: with family Additional living arrangements comments: 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
[2022-01-04 11:00] LABS: Anion Gap 12 mmol/L (8-16); Blood Urea Nitrogen 21 mg/dL (9-20); Calcium 9.5 mg/dL (8.4-10.2); Carbon Dioxide 24 mmol/L (22-30); Chloride 96 mmol/L (98-107); Estimated CRCL calculation 100 ml/min; Estimated Glomerular Filt Rate > 60; Glucose 133 mg/dL (65-110); Potassium 4.2 mmol/L (3.4-5.0); Sodium 132 mmol/L (137-145)
--- NOTE | 2022-01-04 11:08 | WPDHPUPDATE1 ---
History and Physical Update Update Date/Time: 01/04/22 11:08 History and Physical has been reviewed, including an updated exam of the patient. There are NO changes in the patient's condition. Risks, benefits, and alternatives have been discussed and questions answered. Patient agrees to proceed with procedure.
[2022-01-04] MEDS: ceFAZolin 3 GM/D5W 100 ML 100 ML IVPB (12:09)
--- NOTE | 2022-01-04 13:14 | P.OP_ITS ---
Procedure Note - Detailed Date of Procedure 01/04/22 Pre-op Diagnosis Acalculous Chronic Cholecystitis Post-op Diagnosis Same Procedure Performed Laparoscopic cholecystectomyDrew Surgeon Nacho Ying MD [employer] Draw[employer] Hand Brent LOZA Anesthesia General Indications Patient is a 56-year-old man who has had chronic and persistent postprandial right upper quadrant pain. It is worse after fatty meals but much of the time hurts with any type of food. His gallbladder ultrasound was negative other than hepatic steatosis. He had a HIDA scan which was within the normal ranges well. He is felt to have acalculous chronic cholecystitis and is taken to surgery now for laparoscopic cholecystectomy. Findings Minimal inflammation, no gallstones, no biliary ductal dilatation. Hepatic steatosis Description of Procedure Patient was taken to surgery and induced into general anesthesia. The abdomen is prepped and draped. Trocars were placed in usual fashion using 0.25% Marcaine with epinephrine and applied Medical optical trocars. A 5 mm camera was used. The gallbladder was decompressed with a laparoscopic aspirator. The cholecystotomy was closed with a Vicryl endoloop. The gallbladder was then retracted anterosuperiorly. Some adhesions in the lower half of the gallbladder and in the infundibulum area were taken down. Traction was placed on the infundibulum and the triangle of Calot was exposed. Dissection was carried out in the cholecystohepatic triangle. The cystic duct and cystic artery were dissected out very clearly. The gallbladder was dissected off the liver at its lower 3rd. Critical view was achieved. We then securely clipped and divided the cystic duct and cystic artery. The gallbladder was further dissected free of its peritoneal attachments to the liver. Once completely freed, the gallbladder was placed in an Endo-Catch bag retrieved through the 10 11 epigastric trocar site. The 10 11 trocar was then replaced. We reviewed the right upper quadrant and gallbladder fossa. A small amount of residual clotted blood was suctioned away. The gallbladder fossa looked quite dry. There was no evidence of bile leak or bleeding. We then evacuated CO2 and removed the trocar sleeves. Skin wounds were closed with subcuticular 4-0 Monocryl skin suture. The wounds were dressed with Exofin surgical adhesive. The patient was awakened and taken to recovery in good condition. Sponge and needle counts were correct x2. Estimated Blood Loss -5 Drains No Packing No Pathology Yes (Gallbladder) Complications No immediate complications Condition Stable Disposition PACU
[2022-01-04 13:15] LABS: Glucose Point of Care 169 mg/dl (65-105)
[2022-01-04] MEDS: ONDANSETRON INJ 4 MG/2 ML VIAL IV PUSH (13:16)
[2022-01-04] MEDS: fentaNYL CITRATE INJ (*CRX) 100 MCG/2 ML VIAL 25 MCG IV PUSH ×2 (14:57→15:16)
[2022-01-04] MEDS: SCOPOLAMINE 1.5 MG PATCH TRANSDERM (15:08)
[2022-01-04] MEDS: diphenhydrAMINE HCl INJ 50 MG/ML VIAL 25 MG IV PUSH (15:08)
== END 2022-01-04 16:30 | disposition home or self-care (01) ==
PROVIDERS: PCP Family Medicine Adolescent Medicine; Visit Provider Surgery
PROC: 0FT44ZZ Resection of Gallbladder, Percutaneous Endoscopic Approach (ICD-10-PCS; CPT 47562; principal; 2022-01-04 12:00)
DX: K81.1 Chronic cholecystitis (principal); K76.0 Fatty (change of) liver, not elsewhere classified; I10 Essential (primary) hypertension; E78.2 Mixed hyperlipidemia; E11.9 Type 2 diabetes mellitus without complications; Z86.711 Personal history of pulmonary embolism; Z87.891 Personal history of nicotine dependence; Z79.51 Long term (current) use of inhaled steroids; Z79.84 Long term (current) use of oral hypoglycemic drugs; E66.01 Morbid (severe) obesity due to excess calories; Z68.41 Body mass index [BMI] 40.0-44.9, adult
CPT/HCPCS: 47562; 36415; 80048; 80076; 82150; 82948; 83690; 86850; 86900; 86901; 88304; A9270; C1713; J0690; J1100; J1200; J1885; J2405; J2704; J2710; J3010; J7120

== ENCOUNTER 2022-12-27 01:17 | Day surgery (SDC) | payer OTHER, SELFPAY ==
[2022-12-26 13:27] VITALS: BMI 43.9
[2022-12-27] VITALS (15 sets, daily range): BP systolic 119–164; BP diastolic 68–96; PULSE 86–103; RESP 14–18; TEMP 36.6–36.7; O2SAT 96–98; BMI 43.2
[2022-12-27 07:22] LABS: Basophils Absolute Auto 0.1 K/mm3 (0.0-0.1); Basophils Percent Auto 0.7 % (0.2-1.2); Eosinophils Absolute Auto 0.2 K/mm3 (0-0.3); Eosinophils Percent Auto 2.9 % (0-4.4); Hematocrit 39.8 % (42.0-52.0); Hemoglobin 13.3 g/dL (14.0-18.0); Immature Granulocyte Absolute 0.03 K/mm3 (0.00-0.031); Immature Granulocyte Percent A 0.4 % (0-0.5); Lymphocytes Absolute Auto 1.34 K/mm3 (0.9-3.2); Lymphocytes Percent Auto 19.5 % (18.3-44.2); Mean Corpuscular HGB Conc 33.4 g/dl (32-36); Mean Corpuscular Volume 89.6 fl (80-100); Mean Platelet Volume 8.4 fl (7.4-10.4); Monocytes Absolute Auto 0.7 K/mm3 (0.1-0.6); Monocytes Percent Auto 10.2 % (2.6-8.5); Neutrophils Absolute Auto 4.5 K/mm3 (1.3-6.7); Neutrophils Percent Auto 66.3 % (45.5-73.1); Platelet Count Result 253 k/mm3 (150-375); Red Blood Count 4.44 M/mm3 (4.6-6.20); Red Cell Distribution Width 13.1 % (11.5-14.5); White Blood Count 6.9 K/mm3 (4.5-10.0)
[2022-12-27 07:31] LABS: Anion Gap 8 mmol/L (8-16); Blood Urea Nitrogen 14 mg/dL (9-20); Calcium 9.3 mg/dL (8.4-10.2); Carbon Dioxide 29 mmol/L (22-30); Chloride 94 mmol/L (98-107); Estimated CRCL calculation 118 ml/min; Estimated Glomerular Filt Rate > 60; Glucose 203 mg/dL (65-110); Potassium 4.3 mmol/L (3.4-5.0); Sodium 131 mmol/L (137-145)
[2022-12-27] MEDS: SODIUM CHLORIDE 0.9% IV 500 ML 100 ML IV CONT (07:40)
--- NOTE | 2022-12-27 09:19 | WPDHPUPDATE1 ---
History and Physical Update Update Date/Time: 12/27/22 09:19 History and Physical has been reviewed, including an updated exam of the patient. There are NO changes in the patient's condition. Risks, benefits, and alternatives have been discussed and questions answered. Patient agrees to proceed with procedure.
--- NOTE | 2022-12-27 09:19 | WPDMODSED ---
Moderate Sedation Note-Pt Data Patient Data Diagnosis: Chest pain, abnormal stress test Present Complaint: Chest pain, abnormal stress test Procedure to be performed/Plan: Coronary angiography, LHC, +/- PCI Allergies Allergy/AdvReac Type Severity Reaction Status Date / Time shrimp Allergy Intermediate THROAT Verified 12/27/22 07:08 SWELLING metoclopramide Allergy Unknown Agitated Verified 12/27/22 07:08 BEE STING Allergy Mild WELTS, N/V Uncoded 10/31/22 13:00 Home Medications Medication Instructions Recorded Confirmed Type omeprazole 20 mg tablet,delayed 20 mg PO QAM 11/09/21 12/26/22 History release metformin 500 mg tablet,extended 1,000 mg PO BID 12/27/21 12/26/22 History release 24 hr ezetimibe 10 mg tablet 10 mg PO DAILY #30 tabs 08/17/22 12/26/22 Rx aspirin 81 mg tablet 81 mg PO DAILY 12/26/22 12/26/22 History ibuprofen 800 mg tablet 800 mg PO TID PRN Pain 12/26/22 12/26/22 History lisinopril 20 1 tablet PO DAILY 12/26/22 12/26/22 History mg-hydrochlorothiazide 25 mg tablet metoprolol tartrate 50 mg tablet 50 mg PO DAILY 12/26/22 12/26/22 History tizanidine 4 mg tablet 6 mg PO TID 12/26/22 12/26/22 History Current Medications: Active Medications Sodium Chloride (Normal Saline Iv) 500 mls @ 100 mls/hr IV CONT .Q5H ALIVIA Sodium Chloride (Normal Saline Iv) 1,000 mls @ 125 mls/hr IV CONT .Q8H ONE Stop: 12/27/22 17:17 Sedation/Anesthesia: No previous sedation/anesthesia problems (including family history). [facility] Past Medical History Medical History Diabetes type 2, controlled Hepatic steatosis 07/18 History of pulmonary embolism (2013) Hypertension Mixed hyperlipidemia Personal history of nicotine dependence quit 2010 Surgical History Surgical History History of cholecystectomy (12/2021) 01/04/22 History of excision of pilonidal cyst History of tonsillectomy Family History Family History Sibling Depression Father Family history of Parkinson's disease Mother Diabetes mellitus Heart disease Breast cancer Carcinoma of colon Grandparent Cerebrovascular accident Acute myocardial infarction Other Family history of allergic disorder Family history of arthritis Family history of cardiovascular disease Hypertension Social History Social History Smoking packs per day: 3 Smoking cigarettes per day: 60.0 Years smoked: 20 Smoking pack-years: 60.00 Smoking status: Former smoker Tobacco type: cigarettes Second hand tobacco smoke exposure: No Smoking end date: 03/30/05 Alcohol intake: current Drinks per week: 1 Substance use: former Substance use type: does not use Living arrangements: with family Additional living arrangements comments: Occupation/Education: occupation 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 Gender identity (if verbalized by the patient): Male Sexual Orientation (if Verbalized by the Patient): Straight or Heterosexual Spiritual care concerns: No Agree to blood products: Yes Mod Sed Physical Exam Physical Exam Pre Procedural Exam: Normal: Appearance, Lungs, Heart Rate, Heart Rhythm, Neuro Exam, Abdomen, Extremities and Skin Hours since solid foods: 12 Hours since liquid intake: 8 Mallampati Classification: class III Internal Medicine - PN: Obj Da Vital Signs Vital Signs: Vital Signs - 24 hr 12/27/22 07:10 Temperature 36.6 C Pulse Rate 95 Respiratory Rate 16 Blood Pressure 149/83 H Pulse Oximetry 98 Oxygen Delivery Room Air Meds/Results Medications: Active Medications Generic Name Dose Route Start Last Admin Trade Name Freq PRN Reason Stop Dose Admin Sodium Chloride 500 mls @ 100 mls/hr 12/27/22 07:00 Normal Saline Iv IV CONT .Q5H ALIVIA Sodium Chlori
--- NOTE | 2022-12-27 09:20 | WPDCARDPROC ---
Cardiac Cath Procedure Note Date of procedure:: 12/27/22 Performing physician:: CATHETERIZATION LABORATORY REPORT Procedure Date: 12/27/2022 Oven Dauber: Tosha Childs M.D., [facility]? Referring Physician: Dr. Tosha Childs M.D. ? Anesthesia: Versed and Fentanyl were ordered and given in my presence at 08:35, procedure ended at 08:55. Supervision of nurse monitored moderate sedation with Versed and Fentanyl was provided for 20 minutes. Total of Versed 2mg and Fentanyl 50mcg were administered by the Car And Yard Supervisor JEB Henry. Pre-op Diagnosis: Coronary artery disease Post-op Diagnosis: Non obstructive coronary artery disease Left ventricular end-diastolic pressure of 13mmHg Procedure(s): Left heart catheterization with coronary angiography Access Site: Right radial artery Brief History and Clinical Indications: Patient is a 57-year-old male who is referred for cardiac catheterization for abnormal stress test. All risks, benefits and alternatives to left heart catheterization with or without percutaneous coronary intervention was discussed at length with the patient. Risk of complications including but not limited to bleeding, infection, arrhythmia, stroke, worsening kidney function, blood loss, groin hematoma, limb loss, emergency coronary artery bypass grafting, and even were discussed with the patient and all questions were answered. The patient understood and wished to proceed. Time out called, patient name, date of , medical record number, allergies, procedure performed, identify Oven Dauber, patient and staff member concurred with accurate data, procedure carried on. Findings: LEFT HEART CATHETERIZATION FINDINGS: 1. Left main: The left main coronary artery is widely patent without any significant obstructive disease. 2. Left anterior descending: The proximal LAD has a mild 40-50% stenosis. Remainder of the LAD has mild luminal irregularities. The diagonal branches are very small caliber. 3. Ramus: Large caliber Ramus with mild luminal irregularities without any significant obstructive angiographic disease. 4. Left circumflex: The left circumflex is a large caliber co-dominant vessel. The left circumflex has mild luminal irregularities without any significant obstructive angiographic disease. 5. Right coronary artery: The RCA is a co-dominant vessel. The RCA has mild luminal irregularities without any significant obstructive angiographic disease. 6. Left ventricle: A. End-diastolic pressure 13mmHg. B. LV gram deferred. C. No significant gradient across aortic valve on catheter pullback. Description of Procedure: Informed consent signed and placed in the chart. Patient transferred to stucco laborer room. Prepped and draped in usual sterile fashion. 2% lidocaine injected subcutaneously in right wrist area. 22-gauge venipuncture catheter used to access the right radial artery with the Seldinger technique. 6-FR slender sheath placed in right radial artery. Nitroglycerine and Verapamil were given intraarterial through the sheath. Versacore wire advanced under fluoroscopy 5F Tig 4 diagnostic catheter engaged Left Main Coronary Artery. 5F Tig 4 diagnostic catheter engaged Right Coronary Artery Multiple orthogonal angiogram obtained and reviewed 5F Tig 4 diagnostic catheter crossed aortic valve to obtain LVEDP, LV angiogram deferred. Hemostasis was achieved by application of TR band. ? Assessment: Non obstructive coronary artery disease Left ventricular end-diastolic pressure of 13mmHg Post Operative Condition: Stable No significant blood loss Disposition: Home Plan: The patient will be monitored in the recovery area. Discharge home after post-cath bed rest is completed. The above findings were discussed with the referring physician. Continue aggressive medical therapy and risk factor modification. ? Tosha Childs M.D. Interventional Cardiology
== END 2022-12-27 14:00 | disposition home or self-care (01) ==
PROVIDERS: PCP Family Medicine Adolescent Medicine; Visit Provider Internal Medicine
PROC: 4A023N7 Measurement of Cardiac Sampling and Pressure, Left Heart, Percutaneous Approach (ICD-10-PCS; CPT 93452; principal; 2022-12-27 08:30)
DX: I25.10 Atherosclerotic heart disease of native coronary artery without angina pectoris (principal); R94.39 Abnormal result of other cardiovascular function study; I10 Essential (primary) hypertension; E78.2 Mixed hyperlipidemia; E11.9 Type 2 diabetes mellitus without complications; K76.0 Fatty (change of) liver, not elsewhere classified; Z86.711 Personal history of pulmonary embolism; Z87.891 Personal history of nicotine dependence; Z79.84 Long term (current) use of oral hypoglycemic drugs; Z79.82 Long term (current) use of aspirin
CPT/HCPCS: 36415; 80048; 85025; 93458; A9270; C1769; C1887; C1894; J1644; J2250; J3010

== ENCOUNTER 2024-04-29 15:55 | Outpatient (CLI) | payer OTHER, SELFPAY ==
[2024-04-29 16:45] LABS: Creatine Kinase 127 U/L (55-170)
[2024-04-29 17:08] LABS: Iron 44 ug/dL (49-181)
[2024-04-29 17:17] LABS: Percent Iron Saturation 10 % (20-50)
[2024-04-29 17:38] LABS: Hemoglobin A1C 6.7 % (<5.7)
[2024-04-30 12:39] LABS: Homocysteine 14.9 umol/L (<11.4)
[2024-04-30 18:23] LABS: Red Blood Cell Folate 546 ng/mL RBC (>280)
[2024-05-03 09:34] LABS: Methylmalonic Acid 198 nmol/L (55-335)
[2024-05-03 11:28] LABS: Vitamin B1 13 nmol/L (8-30)
[2024-05-03 17:49] LABS: Immunofixation, Serum Normal pattern.
[2024-05-04 11:24] LABS: Vitamin D 1,25 (OH)2 Total 43 pg/mL (18-72); Vitamin D2 1,25 (OH)2 <8 pg/mL; Vitamin D3 1,25 (OH)2 43 pg/mL
[2024-05-04 20:23] LABS: Vitamin B6 24.7 ng/mL (2.1-21.7)
== END 2024-04-29 15:56 | disposition home or self-care (01) ==
LOC: ANHLAB 15:56
PROVIDERS: PCP Family Medicine Adolescent Medicine; Visit Provider Psychiatry & Neurology Neurology
DX: E11.42 Type 2 diabetes mellitus with diabetic polyneuropathy (principal); E55.9 Vitamin D deficiency, unspecified; G25.3 Myoclonus
CPT/HCPCS: 36415; 82550; 82607; 82652; 82747; 83036; 83090; 83540; 83550; 83921; 84207; 84425; 84443; 86038; 86039; 86334

== ENCOUNTER 2024-12-24 01:05 | Day surgery (SDC) | payer OTHER, SELFPAY ==
[2024-12-16 13:01] VITALS: BMI 34.7
--- OUTSIDE RECORDS SUMMARY | 2024-12-24 01:08 | XMS_ITS | Data Portability ---
Author Organization [facility] Dheere Bolo, Main Office Address [address] [place] [address] Care Team Providers Care Grounds Maintenance Supervisor Name Role Phone MARION SNELL Referring Provider Assessment Encounter Date Assessment Date Assessment LastModified by Organization Details LastModified Time 06/25/2024 06/25/2024 This note is dictated and transcribed by [employer]. Insurance Operations Rep variances may occur. Despite proofreading, typographical errors may occur. Occasional wrong-word or '[id number]-d-[id number]' substitutions may have occurred due to the inherent limitations of voice recording. Read the chart carefully and recognize, using context, where substitutions have occurred. Not available 06/25/2024 16:25:15 07/13/2024 07/13/2024 This note is dictated and transcribed by [employer]. Insurance Operations Rep variances may occur. Despite proofreading, typographical errors may occur. Occasional wrong-word or 'lydvh-v-ojtu' substitutions may have occurred due to the inherent limitations of voice recording. Read the chart carefully and recognize, using context, where substitutions have occurred. Not available 07/13/2024 16:38:32 Plan of Treatment Reminders Order Date Submit Date Provider Last Modified By Organization Details Last Modified Time Details Appointments None recorded. Lab None recorded. Referral None recorded. Procedures None recorded. Surgeries None recorded. Imaging None recorded. Medication Orders ammonium lactate 12 % lotion [address] [facility] [address] [facility], [place], [address], 16:24:37 Patient TargetsNo targets recorded. Patient InstructionsNo instructions recorded. Reason for Referral None Reported. Problems Name Problem SNOMED Code Status Onset Date Resolution Date Notes Provider Name and Address Organization Details Recorded Time Anxiety 74875832 Active 2023 Karley Khan dawson, [facility] 4 15:45:20 Diabetes mellitus 77615077 Active 2023 Karley Khan dawson, [facility] 4 15:45:31 Hyperchole sterolemia 59571932 Active 2023 Karley Khan dawson, [facility] 4 15:45:40 Transient cerebral ischemia 267777871 Active 2023 Karley Khan dawson, [facility] 4 15:45:52 Pain in right foot 0468247350808 07 Active 2023 Eran Mckeon DPM [address], [place], [address] , [facility] 4 16:23:50 Porokerato sis 894498712 Active 2023 Eran Mckeon DPM [address], [address], [place], [address] , [facility] 4 16:24:07 Notes:BLOOD CLOTS, PULMONARY EMBOLISM, USE OF BLOOD THINNERS Problem Notes None recorded. Procedures Surgical History Date Name Laterality Status Provider Name and Address Organization Details Recorded Time 07/13/20 24 Callus Debridement, One completed Eran Mckeon DPM [address], [address], [place], [address], [facility] 07/13/2024 16:39:12 06/25/20 24 Callus Debridement, One completed Eran Mckeon DPM [address], [address], [place], [address], [facility] 06/30/2024 09:24:02 09/30/19 22 cholecystectomy completed Karley Dodd [facility] 06/25/2024 15:48:09 Imaging Results None recorded. Procedure Notes None recorded. Medical Equipment None Reported. Allergies Allergen ID Allergen Name Allergen Category Reaction Reaction Severity Criticality Documentation Date Start Date Code Code System Note Provider Name and Address Organization Details Recorded Time [address] [facility] n Not available Not available Not available 06/25/2024 9230 RxNorm Karley Khan null, [facility] 4 15:43:34 19874 shrimp allergeni c extract food Not available Not available Not available 06/25/2024 30768 2 RxNorm Karley osman, [place] - [facility] 4 15:43:42 Medications Name Sig Start Date Stop Date Status Note LastModified by Organization Details LastModified Time celecoxib 200 mg capsule TAKE 1 CAPSULE BY MOUTH TWICE DAILY NEEDED FOR PAIN (DO NOT TAKE WITH IBUPROFEN .) MAY USE CELECOXIB OR IBUPROFEN . 06/25 completed Not Available Not Available Not Available ammonium lactate 12 % lotion Apply 2 applicati ons every day by topical route as directed. 2023 active Not Available Not Available Not Avai lable ibuprofen 800 mg tablet TAKE 1 TABLET BY MOUTH THREE TIMES DAILY NEEDED FOR PAIN 06/25 completed Not Available Not Available Not Available prednisone 20 mg tablet TAKE 3 TABLETS BY MOUTH FOR 3 DAYS, THEN TAKE 2 TABLETS BY MOUTH FOR 3 DAYS, THEN TAKE 1 TABLET BY MOUTH FOR 3 DAYS 06/25 completed Not Available Not Available Not Available tramadol 50 mg tablet TAKE 1 TABLET BY MOUTH EVERY 6 HOURS NEEDED FOR PAIN 06/25 completed Not Available Not Available Not Available nitroglycer in 0.4 mg sublingual tablet DISSOLVE ONE TABLET UNDER THE TONGUE EVERY 5 MINUTES NEEDED FOR CHEST PAIN. DO NOT EXCEED A TOTAL OF 3 DOSES IN 15 MINUTES NOW 06/25 completed Not Available Not Available Not Available lisinopril 20 mg-hydrochl orothiazide 25 mg tablet TAKE 1 TABLET BY MOUTH ONCE DAILY active Not Available Not Available No t Available lorazepam 1 mg tablet TAKE 2 TABLETS BY MOUTH A ONE TIME DOSE 06/25 completed Not Available Not Available Not Available metformin ER 500 mg tablet,exte nded release 24 hr TAKE 2 TABLETS BY MOUTH TWICE DAILY 06/25 completed Not Available Not Available Not Available ezetimibe 10 mg tablet TAKE 1 TABLET BY MOUTH ONCE DAILY active Not Available Not Available No t Available metoprolol tartrate 25 mg tablet TAKE 1 TABLET BY MOUTH TWICE DAILY active Not Available Not Available No t Available OneTouch Verio test strips USE 1 STRIP TO CHECK GLUCOSE ONCE DAILY 06/25 completed Not Available Not Available Not Available Vitals Date Recorded Body height Body mass index (BMI) Body weight Provider Name and Address Organization Details Last Updated DateTime 06/25/2024 177.8 cm 35.9 kg/m2 341731.09 g Karley Khan [facility] Dheere Bolo 06/25/2024 15:43:04 Date Recorded Body height Body mass index (BMI) Body weight Provider Name and Address Organization Details Last Updated DateTime 07/13/2024 177.8 cm 35.9 kg/m2 942969.09 kathy Andres [facility] Dheere [facility]olo 07/13/2024 15:51:41 Social History Question Answer Notes LastModified by Organizat ion Details LastModified Time Tobacco Smoking Status Former Smoker Karley osman [facility] [employer] 06/25/2024 15:47:52 When Did You Quit Smoking? 15+yearssinc elastcigaret te Information not available 06/25/2024 How Many Years Have You Smoked Tobacco? 25 Information not available 06/25/2024 Sex: Unknown Functional Status None recorded. Mental Status None recorded. Family History Relationship Description Onset Age of this Age Resolved Age Notes LastModified by Organization Details LastModified Time Mother Diabetes mellitus Not available 2023 15:46:41 Mother Hypertensive disorder Not available 2023 15:47:05 Mother Heart disease Not available 2023 15:47:17 Mother Family history of malignant neoplasm Not available 2023 15:47:33 Unspecified Relation Hypertensive disorder GRANDM A Not available 06/25/2024 15:47:05 Medical History Condition Response USE OF BLOOD THINNERS Y ANXIETY DISORDER Y BLOOD CLOTS Y DIABETES, TYPE Y PULMONARY DISEASE Y STROKE/TIA Y HIGH CHOLESTEROL / HYPERLIPIDEMIA Y Past Encounters Encounter ID Performer Location Encounter Start Date Encounter Closed Date Diagnosis/Indication Diagnosis SNOMED-CT Code Diagnosis ICD10 Code Diagnosis Note [id number] Eran Mckeon DPM [facility] [address] [place] [address] 06/25/2024 15:34:22 07/02/2024 16:13:32 Pain in right foot 6644660410 02973 M79.671 secondary to below Porokeratosis 674362066 Q82.8 sub 5th met head - right footdebrid ed without incidentof floadingwe ar supportive shoe- no slip on stylefollo w up in 3 weeks [id number] Eran Mckeon DPM [facility] [place] [facility] [address] [place] [address] 07/13/2024 15:48:40 07/14/2024 14:30:34 Porokeratosis 576200892 Q82.8 sub 5th met head - right foot --- Resolvedwe ar supportive shoe- no slip on stylefollo w up as needed Health Concerns Section Related Observation LastModified by Organization Detai ls LastModified Time None Recorded Concern Status LastModified by Organization Details LastModified Time None Recorded Advance Directives Directive None Recorded Payers Encounter Date Sequence Insurance Name Policy Number Policy Horne Covered Member ID Horne Member ID Guarantor Name 06/25/2024 1 [facility] (POS) [id number] [facility] [employer] [id number] Morris Genevieve 07/13/2024 1 [facility] (POS) [id number] [facility] [employer] [id number] Morris Genevieve Notes Date Note Type Note Provider Name and Address Organization Details Recorded Time 06/25/2024 text/html . Patient is a 58-year-old male who presents the office with complaints of a right foot pain. Patient states he has developed a painful callus which he has significant discomfort to this area he denies any redness or drainage to the area he states the pain is sharp in nature describes it as 8/10 and when he is at rest does feel better. Patient states this has been ongoing since . Eran Mckeon DPM [address], [address], [facility] [employer] 06/30/2024 09:24:59 07/13/2024 text/html . Patient is a 58-year-old male who returns for porokeratosis the area has completely resolved he denies any pain or signs of wounds or infection to the area. Patient denies any other complaints. Eran Mckeon DPM [address] [facility] [address], [place], [address], [facility] 07/13/2024 16:39:20
--- OUTSIDE RECORDS SUMMARY | 2024-12-24 01:08 | XMS_ITS | Referral Summary ---
Author Organization [facility] [address] Address [address] [place] [address] Care Team Providers Care Wealth Management Advisor Name Role Phone Rei King MD Primary Care Prov ider Allergies Active Allergy Reactions Criticality Noted Date Comments Metoclopramide Mental status changes,Hallucinations,Hi ves,Other (See comments) High 05/31/2015 Reaction: CONFUSION, HALLUCINATION, , Hives Reaction: Other Shrimp Anaphylaxis High Reaction: ANAPHYLAXIS, Medications omeprazole (PriLOSEC) 20 mg capsule take 1 capsule by oral route every day before a meal 0 0 6 Active lisinopril-hydr oCHLOROthiazide (PRINZIDE,ZESTO RETIC) 10-12.5 mg per tablet take 1 tablet by oral route every day 0 0 6 Active ibuprofen (ADVIL,MOTRIN) 800 mg tablet take 1 tablet by oral route 2 times every day with food 0 0 6 Active Additional Information Patient not taking.Reported on 12/14/2022 metoprolol (LOPRESSOR) 50 mg tablet take 1 Tablet by oral route 2 times every day with meals 0 0 6 Active aspirin 325 mg tablet take 1 Tablet by oral route every day 0 0 6 Active Additional Information Patient not taking.Reported on 12/14/2022 TiZANidine (ZANAFLEX) 6 mg capsule take 1 capsule by oral route 3 times every day 0 0 6 Active metFORMIN XR (GLUCOPHAGE XR) 500 mg 24 hr tablet Take 500 mg by mouth 4 (four) times a day 3 Active ezetimibe (ZETIA) 10 mg tablet Take 10 mg by mouth daily Active Active Problems Problem Noted Date Diagnosed Date Chest pain 12/14/2022 Lipid screening 12/14/2022 Hypertension 12/14/2022 History of pulmonary embolism 12/14/2022 Abnormal stress test 12/14/2022 Morbid obesity 12/14/2022 Social History Tobacco Use Types Packs/Day Years Used Date Smoking Tobacco: Former Cigarettes Q uit: 11/28/2004 Smokeless Tobacco: Never Tobacco Cessation:Counseling Given: Not Answered Sex and Gender Information Value Date Recorded Sex Assigned at Not on file 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 Gender Identity Not on file Sexual Orientation Not on file Last Filed Vital Signs Vital Sign Reading Time Taken Comments Blood Pressure 110/80 12/14/2022 3:22 PM CDT Pulse 115 12/14/2022 3:22 PM CDT Temperature 37.2 C (98.9 F) 10/09/2021 7:21 PM MECHANICAL ENGINEER Respiratory Rate 18 10/09/2021 7:21 PM MECHANICAL ENGINEER Oxygen Saturation 95% 12/14/2022 3:22 PM CDT Inhaled Oxygen Concentration - - Weight 135.2 kg (298 lb) 12/14/2022 3:22 PM CDT Height 176.5 cm (5' 9.5 ) 12/14/2022 3:22 PM CDT Body Mass Index 43.38 12/14/2022 3:22 PM CDT Plan of Treatment [place] [address] [facility] CHO[facility] H[facility]PPO Address: [facility] [address] [place] [address] [place] [address] Care Teams Wealth Management Advisor Relationship Specialty Start Date End Date Rei King MD [address] [place] [address] PCP - General 07/24/16
--- OUTSIDE RECORDS SUMMARY | 2024-12-24 01:08 | XMS_ITS | Clinical Summary ---
Author Organization [facility] [address] Address [address] [place] [address] Care Team Providers Care Registry Rn Name Role Phone Rei King MD Primary [...] tablet Take 10 mg by mouth daily 3 Active Active Problems Problem Noted Date Diagnosed Date Chest pain 12/14/2022 Lipid screening 12/14/2022 Hypertension 12/14/2022 History of pulmonary embolism 12/14/2022 Abnormal stress test 12/14/2022 Morbid obesity 12/14/2022 Medical History Medical History Date Comments Hypertension DM (diabetes mellitus) (HCC) Family History Medical History Relation Name Comments No Known Problems Father Breast cancer Mother Diabetes Mother Heart failure Mother Lung cancer Mother Other Mother Unknown; Diabetes Sister Hypertension Sister Relation Name Status Comments Father Mother Sister Social History Tobacco Use Types Packs/Day Years Used Date Smoking Tobacco: Former Cigarettes Q uit: 11/28/2004 Smokeless Tobacco: Never Tobacco Cessation:Counseling Given: Not Answered Sex and Gender Information Value Date Recorded Sex Assigned at Not on file 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 Gender Identity Not on file Sexual Orientation Not on file Obstetrics History Last Filed Vital Signs Vital Sign Reading Time Taken Comments Blood Pressure 110/80 12/14/2022 3:22 PM CDT Pulse 115 12/14/2022 3:22 PM CDT Temperature 37.2 C (98.9 F) 10/09/2021 7:21 PM VACUUM CLEANER OPERATOR Respiratory Rate 18 10/09/2021 7:21 PM VACUUM CLEANER OPERATOR Oxygen Saturation 95% 12/14/2022 3:22 PM CDT Inhaled Oxygen Concentration - - Weight 135.2 kg (298 lb) 12/14/2022 3:22 PM CDT Height 176.5 cm (5' 9.5 ) 12/14/2022 3:22 PM CDT Body Mass Index 43.38 12/14/2022 3:22 PM CDT Plan of Treatment Health Maintenance Due Date Last Done Comments Colon Cancer Screening-Colonoscopy 1964 Depression Screening 1964 Hepatitis C Screening 1964 Prostate Cancer Screening-PSA 1964 DTaP/Tdap/Td Vaccine (1 - Tdap) 12/01/1975 Hepatitis B Screening 1982 Regular Well Visit/Exam 18-64 1982 Zoster Vaccine (1 of 2) 2014 Covid-19 Vaccine (2 - 2023-2 5 season) 2024 12/06/2020 Influenza Vaccine (#1) 2024 Pneumococcal vaccine <65 Aged Out No longer eligible based on patient's age to complete this topic Insurance [facility] CHOICE PLUS Care Teams Registry Rn Relationship Specialty Start Date End Date Rei King MD [address] [place] [address] PCP - General 07/24/16
--- OUTSIDE RECORDS SUMMARY | 2024-12-24 01:08 | XMS_ITS | Clinical Summary ---
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 Gender Identity Not on file Sexual Orientation Not on file Plan of Treatment Health Maintenance Due Date Last Done Comments Hepatitis C Virus (HCV) Screening 1964 TdaP Immunization 1964 Hepatitis B Immunization (1 of 3 - 19+ 3-dose series) 12/01/1983 Colonoscopy 2009 Colorectal Cancer Screening 2009 Cologuard 2014 Immunochemical Fecal Occult Blood 2014 Pneumococcal Immunization (5 0+ years) (1 of 1 - PCV) 2014 Zoster Immunization (1 of 2) 2014 PSA Discussion 12/01/2019 Influenza Immunization (#1) 2024 SARS-COV-2 Immunization ( season) 2024 Respiratory Syncytial Virus (RSV) Immunization (Adult) (1 - 1-dose 75+ series) 12/01/2039 Meningococcal Immunization (ACWY) Aged Out No longer eligible based on patient's age to complete this topic Pneumococcal Immunization Combined Aged Out No longer eligible based on patient's age to complete this topic Rotavirus Immunization Aged Out No lo nger eligible based on patient's age to complete this topic
--- OUTSIDE RECORDS SUMMARY | 2024-12-24 01:08 | XMS_ITS | Clinical Summary ---
Author Organization [facility] Address [address] [place] [address] Care Team Providers Care Milk Route Supervisor Name Role Phone Unavailable Primary Care Provider Unavailabl e Social History Tobacco Use Types Packs/Day Years Used Date Smoking Tobacco: Never Assessed Sex and Gender Information Value Date Recorded Sex Assigned at Not on file Legal Sex Male 7:33 PM CDT Gender Identity Not on file Sexual Orientation Not on file Plan of Treatment Health Maintenance Due Date Last Done Comments Colorectal Cancer Screening Colonoscopy (10 Years) 1964 Annual Physical 12/01/1967 Hepatitis C 1982 DTaP, Tdap and Td Vaccines ( 1 - Tdap) 12/01/1983 Zoster Vaccines (1 of 2) 2014 COVID-19 Vaccine (2023-2 5 season) 2024 Influenza Adult (#1) 2024 RSV Immunization or 60+ Years (1 - 1-dose 75+ series) 12/01/2039 Meningococcal B Vaccine Aged Out No l onger eligible based on patient's age to complete this topic Meningococcal Vaccine Aged Out No shubham chester eligible based on patient's age to complete this topic Pneumococcal Vaccine: Pediat rics (0 to 5 Years) and At-Risk Patients (6 to 64 Years) Aged Out No longer eligible b ased on patient's age to complete this topic RSV Immunizations Under 20 Months Aged Out No longer eligible based on patient's age to complete this topic
[2024-12-24 06:44] VITALS: BP 113/76; PULSE 92; RESP 18; TEMP 35.7; O2SAT 98; BMI 33.7
[2024-12-24] MEDS: LACTATED RINGERS 1,000 ML 150 ML IV CONT (07:07)
--- NOTE | 2024-12-24 07:45 | P.PNAN_ITS ---
Anes - Initial Pre Proc Eval Procedure: Operation Date: 12/24/24 08:00 Proposed Procedures p Screening Colonoscopy - Orion Fritz MD Date/Time: 12/24/24 07:45 Surgeon: Orion Fritz MD Pre Op Diagnosis: screening Patient Data Age: 59 Gender: M Height: 1.78 m Weight: 106.5 kg Last Vital Signs Temp 96.3 F L 12/24/24 06:44 Pulse 92 12/24/24 06:44 Resp 18 12/24/24 06:44 BP 113/76 12/24/24 06:44 Pulse Ox 98 12/24/24 06:44 O2 Del Method Room Air 12/24/24 06:44 Allergies Allergy/AdvReac Type Severity Reaction Status Date / Time shrimp Allergy Intermediate THROAT Verified 12/24/24 06:50 SWELLING metoclopramide Allergy Unknown Agitated Verified 12/24/24 06:50 BEE STING Allergy Mild WELTS, N/V Uncoded 12/24/24 06:50 atorvastatin AdvReac Severe Muscle Pain Uncoded 12/24/24 06:50 Home Medications ?Medication ?Instructions ?Recorded ?Confirmed ?Type omeprazole 20 mg tablet,delayed 20 mg PO BID 11/09/21 12/24/24 History release aspirin 81 mg tablet 81 mg PO DAILY 12/26/22 12/24/24 History nitroglycerin 0.4 mg sublingual 0.4 mg sublingual Q5M PRN chest 12/02/23 12/16/24 Rx tablet pain #25 tabs blood sugar diagnostic (OneTouch #100 ea 05/05/24 12/16/24 Rx Verio test strips) ezetimibe 10 mg tablet 10 mg PO DAILY #90 tabs 11/05/24 12/24/24 Rx ibuprofen 800 mg tablet 800 mg PO TID PRN Pain #90 tabs 11/05/24 12/24/24 Rx Patient hx anesthesia problems: none Family hx anesthesia problems: none Results Review: All pre-operative results and documents have been reviewed as part of the pre- operative evaluation. [facility] Past Medical History Medical History (Updated 11/05/24 @ 10:13 by Rei King MD) Diabetic polyneuropathy Benign fasciculations Abnormal stress test Personal history of nicotine dependence quit 2010 History of pulmonary embolism (2013) Hepatic steatosis 10/19 Mixed hyperlipidemia Hypertension Surgical History Surgical History History of cholecystectomy (12/2021) 01/04/22 History of excision of pilonidal cyst History of tonsillectomy Family History Family History Sibling Depression Father Family history of Parkinson's disease Mother Diabetes mellitus Heart disease Breast cancer Carcinoma of colon Grandparent Cerebrovascular accident Acute myocardial infarction Other Family history of allergic disorder Family history of arthritis Family history of cardiovascular disease Hypertension Social History Social History Smoking packs per day: 3.5 Smoking cigarettes per day: 70.0 Years smoked: 20 Smoking pack-years: 70.00 Smoking status: Former smoker Tobacco type: cigarettes, pipe and cigars Smokeless tobacco user: chewing tobacco Second hand tobacco smoke exposure: No Smoking end date: 03/30/05 Alcohol intake: former Drinks per week: 1 Substance use: former Substance use type: marijuana Other substance usage details: daily for about a year 1979 Living arrangements: with family Additional living arrangements comments: Occupation/Education: occupation 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 Gender identity (if verbalized by the patient): Male Sexual Orientation (if Verbalized by the Patient): Straight or Heterosexual Spiritual care concerns: No Agree to blood products: Yes Anes - Eval Final PreProcedure Day of Procedure 12/24/24 07:45 Patient weight: obese Heart: regular rate and rhythm Lungs: clear to auscultation Airway: Mallampati scale class II Neurological: alert and oriented Last oral intake: >/= 8 hours ASA classification: III Emergent: no Anesthetic plan: proceed Anesthesia type and monitoring: general GIVS and standard monitoring Results Review: All pre-operative results and documents have been reviewed as part of the pre- operative evaluation. Informed Consent: The patient's anesthetic plan and its attendant risks and benefits were discussed with the patient/family/POA. Questions were solicited and answers provided to the satisfaction of the patient/family/POA.
--- NOTE | 2024-12-24 07:48 | PM.IMHP ---
H&P: HPI History of Present Illness Date/Time: 12/24/24 07:48 Chief Complaint: Family history of colorectal cancer Narrative: This patient has family history of colorectal cancer. his mother had Colon cancer when she was in her 60s. the patient has been undergoing colonoscopy every 5 years, no polyps were found. Review of Systems Review of Systems: All systems reviewed & are unremarkable except as noted in HPI and below PMFSH Past Medical History Medical History (Updated 12/24/24 @ 07:49 by Orion Fritz MD) Diabetic polyneuropathy Benign fasciculations Abnormal stress test Personal history of nicotine dependence quit 2010 History of pulmonary embolism (2013) Hepatic steatosis 07/18 Mixed hyperlipidemia Hypertension Surgical History Surgical History (Reviewed 04/29/24 @ 13:58 by Elizabeth Solomon [facility]) History of cholecystectomy (12/2021) 01/04/22 History of excision of pilonidal cyst History of tonsillectomy Family History Family History (Reviewed 04/29/24 @ 13:58 by Elizabeth Solomon [facility]) Sibling Depression Father Family history of Parkinson's disease Mother Diabetes mellitus Heart disease Breast cancer Carcinoma of colon Grandparent Cerebrovascular accident Acute myocardial infarction Other Family history of allergic disorder Family history of arthritis Family history of cardiovascular disease Hypertension Social History Social History (Reviewed 04/29/24 @ 13:58 by Elizabeth Solomon [facility]) Smoking packs per day: 3.5 Smoking cigarettes per day: 70.0 Years smoked: 20 Smoking pack-years: 70.00 Smoking status: Former smoker Tobacco type: cigarettes, pipe and cigars Smokeless tobacco user: chewing tobacco Second hand tobacco smoke exposure: No Smoking end date: 03/30/05 Alcohol intake: former Drinks per week: 1 Substance use: former Substance use type: marijuana Other substance usage details: daily for about a year 1979 Living arrangements: with family Additional living arrangements comments: Occupation/Education: occupation 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 Gender identity (if verbalized by the patient): Male Sexual Orientation (if Verbalized by the Patient): Straight or Heterosexual Spiritual care concerns: No Agree to blood products: Yes Meds Home Medications and Allergies Home Medications ?Medication ?Instructions ?Recorded ?Confirmed ?Type omeprazole 20 mg tablet,delayed 20 mg PO BID 11/09/21 12/24/24 History release aspirin 81 mg tablet 81 mg PO DAILY 12/26/22 12/24/24 History nitroglycerin 0.4 mg sublingual 0.4 mg sublingual Q5M PRN chest 12/02/23 12/16/24 Rx tablet pain #25 tabs blood sugar diagnostic (OneTouch #100 ea 05/05/24 12/16/24 Rx Verio test strips) ezetimibe 10 mg tablet 10 mg PO DAILY #90 tabs 11/05/24 12/24/24 Rx ibuprofen 800 mg tablet 800 mg PO TID PRN Pain #90 tabs 11/05/24 12/24/24 Rx Allergies Allergy/AdvReac Type Severity Reaction Status Date / Time shrimp Allergy Intermediate THROAT Verified 12/24/24 06:50 SWELLING metoclopramide Allergy Unknown Agitated Verified 12/24/24 06:50 BEE STING Allergy Mild WELTS, N/V Uncoded 12/24/24 06:50 atorvastatin AdvReac Severe Muscle Pain Uncoded 12/24/24 06:50 Vital Signs Vital Signs - 24 hr 12/24/24 06:44 Temperature 96.3 F L Pulse Rate 92 Respiratory Rate 18 Blood Pressure 113/76 Pulse Oximetry 98 Oxygen Delivery Room Air Exam Const: General: cooperative and healthy appearing Resp: Effort & Inspection: normal respiratory effort and able to speak in complete sentences Auscultation: clear to auscultation bilaterally Cardio: Rate: regular rate Rhythm: regular rhythm GI: Inspection: normal to inspection GI Palp: No No hepatosplenomegaly present Auscultation: normal bowel sounds Rectal Exam: deferred Skin: General skin exam: normal color Psych: Appearance: grossly normal Mental Status: mental status grossly normal Assessment and Plan Assessment and plan (1) Family history of colorectal cancer: Code(s): Z80.0 - Family history of malignant neoplasm of digestive organs Status: Acute Assessment and Plan: The patient is deemed a good candidate for the procedure. Consent signed. Will proceed.
[2024-12-24 09:02] VITALS: BP 114/77; PULSE 66; RESP 13; O2SAT 99
[2024-12-24 09:12] VITALS: BP 127/75; PULSE 68; RESP 15; O2SAT 99
[2024-12-24 09:22] VITALS: BP 120/81; PULSE 66; RESP 19; O2SAT 100
== END 2024-12-24 09:41 | disposition home or self-care (01) ==
PROVIDERS: PCP Family Medicine Adolescent Medicine; Referring Provider Family Medicine Adolescent Medicine; Visit Provider Internal Medicine Gastroenterology
PROC: 0DJD8ZZ Inspection of Lower Intestinal Tract, Via Natural or Artificial Opening Endoscopic (ICD-10-PCS; CPT 45378; principal; 2024-12-24 08:00)
DX: Z12.11 Encounter for screening for malignant neoplasm of colon (principal); D12.0 Benign neoplasm of cecum; K57.30 Diverticulosis of large intestine without perforation or abscess without bleeding; E78.2 Mixed hyperlipidemia; I10 Essential (primary) hypertension; E11.42 Type 2 diabetes mellitus with diabetic polyneuropathy; R25.3 Fasciculation; E66.9 Obesity, unspecified; Z68.33 Body mass index [BMI] 33.0-33.9, adult; Z79.82 Long term (current) use of aspirin; Z79.1 Long term (current) use of non-steroidal anti-inflammatories (NSAID); Z98.890 Other specified postprocedural states; Z90.49 Acquired absence of other specified parts of digestive tract; Z87.891 Personal history of nicotine dependence; Z86.711 Personal history of pulmonary embolism; Z80.0 Family history of malignant neoplasm of digestive organs; Z80.3 Family history of malignant neoplasm of breast; Z82.49 Family history of ischemic heart disease and other diseases of the circulatory system
CPT/HCPCS: 45390; 88305; J2003; J2704; J7120

== ENCOUNTER 2025-06-11 01:31 | Day surgery (SDC) | payer OTHER, SELFPAY ==
[2025-05-27 13:39] VITALS: BMI 34.3
--- OUTSIDE RECORDS SUMMARY | 2025-06-11 01:36 | XMS_ITS | Clinical Summary ---
Author Organization [facility] Address [address] [place] [id number] Care Team Providers Care Manager Inventory Management Name Role Phone Unavailable Primary Care Provider [...] Td Vaccines ( 1 - Tdap) 12/01/1983 Pneumococcal Vaccine: 50+ Ye ars (1 of 1 - PCV) 2014 Zoster Vaccines (1 of 2) 2014 COVID-19 Vaccine ( - 2023-2 5 season) 2025 RSV Immunization or 60+ Years (1 - [...]
--- OUTSIDE RECORDS SUMMARY | 2025-06-11 01:36 | XMS_ITS | Clinical Summary ---
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 Gender Identity Not on file Sexual Orientation Not on file Plan of Treatment Health Maintenance Due Date Last Done Comments Hepatitis C Virus (HCV) Screening 1965 TdaP Immunization 1965 Cologuard 2009 Colonoscopy 2009 Colorectal Cancer Screening 2009 Immunochemical Fecal Occult Blood 2009 Pneumococcal Immunization (5 0+ years) (1 of 1 - PCV) 2014 Zoster Immunization (1 of 2) 2014 SARS-COV-2 Immunization (1 - 2023- season) 2024 Influenza Immunization (#1) 2025 Respiratory Syncytial Virus (RSV) Immunization (Adult) (1 - 1-dose 75+ series) 12/01/2039 Hepatitis B Immunization Aged Out No longer eligible based on patient's age to complete this topic Human Papillomavirus (HPV) Immunization Aged Out No longer eligible b ased on patient's age to complete this topic Meningococcal Immunization (ACWY) Aged Out No longer eligible based on patient's age to complete this topic Rotavirus Immunization Aged Out No lo nger eligible based on patient's age to complete this topic
--- NOTE | 2025-06-11 07:11 | WPDANESEPPF ---
Anes - Initial Pre Proc Eval Procedure: Operation Date: 06/11/25 08:30 Proposed Procedures p Diagnostic Colonoscopy - Orion Fritz MD Date/Time: 06/11/25 07:11 Surgeon: Orion Fritz MD Pre Op Diagnosis: Personal history of colon polyps, unspecified Patient Data Age: 59 Gender: M Height: 1.78 m Weight: 108.5 kg Allergies Allergy/AdvReac Type Severity Reaction Status Date / Time shrimp Allergy Intermediate THROAT Verified 06/11/25 07:17 SWELLING metoclopramide Allergy Unknown Agitated Verified 06/11/25 07:17 BEE STING Allergy Mild WELTS, N/V Uncoded 05/27/25 13:21 atorvastatin AdvReac Severe Muscle Pain Uncoded 05/27/25 13:21 Home Medications ?Medication ?Instructions ?Recorded ?Confirmed ?Type aspirin 81 mg tablet 81 mg PO DAILY 12/26/22 06/11/25 History nitroglycerin 0.4 mg sublingual 0.4 mg sublingual Q5M PRN chest 12/02/23 05/27/25 Rx tablet pain #25 tabs blood sugar diagnostic (OneTouch #100 ea 05/05/24 01/05/25 Rx Verio test strips) ezetimibe 10 mg tablet 10 mg PO DAILY #90 tabs 11/05/24 06/11/25 Rx ibuprofen 800 mg tablet 800 mg PO TID PRN Pain #90 tabs 11/05/24 06/11/25 Rx loratadine 10 mg tablet (Claritin) 10 mg PO DAILY 05/27/25 06/11/25 History Patient hx anesthesia problems: none Family hx anesthesia problems: none Results Review: All pre-operative results and documents have been reviewed as part of the pre-operative evaluation. [facility] Past Medical History Medical History (Updated 06/10/25 @ 14:20 by Kota Pacheco DO) Type 2 diabetes mellitus with diabetic polyneuropathy Diabetic polyneuropathy Benign fasciculations Abnormal stress test Personal history of nicotine dependence quit 2010 History of pulmonary embolism (2013) Hepatic steatosis 07/18 Mixed hyperlipidemia Hypertension Surgical History Surgical History (Updated 06/10/25 @ 14:20 by Kota Pacheco DO) Hx of CABG History of cholecystectomy (12/2021) 01/04/22 History of excision of pilonidal cyst History of tonsillectomy Family History Family History Sibling Depression Father Family history of Parkinson's disease Mother Diabetes mellitus Heart disease Breast cancer Carcinoma of colon Grandparent Cerebrovascular accident Acute myocardial infarction Other Family history of allergic disorder Family history of arthritis Family history of cardiovascular disease Hypertension Social History Social History Smoking packs per day: 3.5 Smoking cigarettes per day: 70.0 Years smoked: 20 Smoking pack-years: 70.00 Smoking status: Former smoker Tobacco type: cigarettes, pipe and cigars Smokeless tobacco user: chewing tobacco Second hand tobacco smoke exposure: No Smoking end date: 03/30/05 Alcohol intake: never Substance use: never Substance use type: does not use Living arrangements: with family Additional living arrangements comments: Occupation/Education: 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 Gender identity (if verbalized by the patient): Male Sexual Orientation (if Verbalized by the Patient): Straight or Heterosexual Spiritual care concerns: No Agree to blood products: Yes Anes - Eval Final PreProcedure Day of Procedure 06/11/25 07:11 Patient weight: obese Heart: regular rate and rhythm Lungs: clear to auscultation Airway: Mallampati scale class II Neurological: alert and oriented Last oral intake: >/= 8 hours ASA classification: III Emergent: no Anesthetic plan: proceed Anesthesia type and monitoring: general GIVS and standard monitoring Results Review: All pre-operative results and documents have been reviewed as part of the pre-operative evaluation. Informed Consent: The patient's anesthetic plan and its attendant risks and benefits were discussed with the patient/family/POA. Questions were solicited and answers provided to the satisfaction of the patient/family/POA.
[2025-06-11 07:19] VITALS: BP 130/75; PULSE 76; RESP 16; TEMP 35.9; O2SAT 97
[2025-06-11] MEDS: LACTATED RINGERS 1,000 ML 150 ML IV CONT (07:27)
--- NOTE | 2025-06-11 08:11 | PM.IMHP ---
H&P: [facility] History of Present Illness Date/Time: 06/11/25 08:11 Chief Complaint: Family history of colon cancer- recently discovered tubulovillous adenoma with high-grade dysplasia in the cecum. Narrative: In November this year a large flat polyp was found in his cecum, and an endoscopic mucosal resection was performed. Pathology showed tubulovillous adenoma with high-grade dysplasia. He is referred for follow-up colonoscopy after 6 months, especially to check the resection site. Review of Systems Review of Systems: All systems reviewed & are unremarkable except as noted in HPI and below [facility] Past Medical History Medical History (Updated 06/10/25 @ 14:20 by Kota Pacheco DO) Type 2 diabetes mellitus with diabetic polyneuropathy Diabetic polyneuropathy Benign fasciculations Abnormal stress test Personal history of nicotine dependence quit 2010 History of pulmonary embolism (2013) Hepatic steatosis 07/18 Mixed hyperlipidemia Hypertension Surgical History Surgical History (Updated 06/10/25 @ 14:20 by Kota Pacheco DO) Hx of CABG History of cholecystectomy (12/2021) 01/04/22 History of excision of pilonidal cyst History of tonsillectomy Family History Family History Sibling Depression Father Family history of Parkinson's disease Mother Diabetes mellitus Heart disease Breast cancer Carcinoma of colon Grandparent Cerebrovascular accident Acute myocardial infarction Other Family history of allergic disorder Family history of arthritis Family history of cardiovascular disease Hypertension Social History Social History Smoking packs per day: 3.5 Smoking cigarettes per day: 70.0 Years smoked: 20 Smoking pack-years: 70.00 Smoking status: Former smoker Tobacco type: cigarettes, pipe and cigars Smokeless tobacco user: chewing tobacco Second hand tobacco smoke exposure: No Smoking end date: 03/30/05 Alcohol intake: never Substance use: never Substance use type: does not use Living arrangements: with family Additional living arrangements comments: Occupation/Education: occupation 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 Gender identity (if verbalized by the patient): Male Sexual Orientation (if Verbalized by the Patient): Straight or Heterosexual Spiritual care concerns: No Agree to blood products: Yes Meds Home Medications and Allergies Home Medications ?Medication ?Instructions ?Recorded ?Confirmed ?Type aspirin 81 mg tablet 81 mg PO DAILY 12/26/22 06/11/25 History nitroglycerin 0.4 mg sublingual 0.4 mg sublingual Q5M PRN chest 12/02/23 05/27/25 Rx tablet pain #25 tabs blood sugar diagnostic (OneTouch #100 ea 05/05/24 01/05/25 Rx Verio test strips) ezetimibe 10 mg tablet 10 mg PO DAILY #90 tabs 11/05/24 06/11/25 Rx ibuprofen 800 mg tablet 800 mg PO TID PRN Pain #90 tabs 11/05/24 06/11/25 Rx loratadine 10 mg tablet (Claritin) 10 mg PO DAILY 05/27/25 06/11/25 History Allergies Allergy/AdvReac Type Severity Reaction Status Date / Time shrimp Allergy Intermediate THROAT Verified 06/11/25 07:17 SWELLING metoclopramide Allergy Unknown Agitated Verified 06/11/25 07:17 BEE STING Allergy Mild WELTS, N/V Uncoded 05/27/25 13:21 atorvastatin AdvReac Severe Muscle Pain Uncoded 05/27/25 13:21 Vital Signs Vital Signs - 24 hr 06/11/25 07:19 Temperature 96.6 F L Pulse Rate 76 Respiratory Rate 16 Blood Pressure 130/75 Pulse Oximetry 97 Oxygen Delivery Room Air Exam Const: General: cooperative and healthy appearing Resp: Effort & Inspection: normal respiratory effort and able to speak in complete sentences Auscultation: clear to auscultation bilaterally Cardio: Rate: regular rate Rhythm: regular rhythm GI: Inspection: normal to inspection GI Palp: No No hepatosplenomegaly present Auscultation: normal bowel sounds Rectal Exam: deferred Skin: General skin exam: normal color Psych: Appearance: grossly normal Mental Status: mental status grossly normal Assessment and Plan Assessment and plan (1) High grade dysplasia in colonic adenoma: Code(s): D12.6 - Benign neoplasm of colon, unspecified Status: Acute Assessment and Plan: The patient is deemed a good candidate for the procedure. Consent signed. Will proceed.
[2025-06-11] MEDS: SIMETHICONE ORAL SUSPENSION 20 MG/0.3 ML 30 ML BOTTLE 0.6 ML IRRIGATION (08:26)
--- NOTE | 2025-06-11 08:35 | S_PTH ---
PATIENT: Morris Vallejo LOC: MATI #:[id number] AGE/SX: 59/M ROOM: RE06/11/[address]: Orion Fritz MD : 1965 BED: DIS: 06/11/2025 SPEC #: [id number] RECD: 06/11/25 10:58 STATUS: JOSE DANIEL REQ #: [id number] SUSHANT: 06/11/25 08:[address]: Orion Fritz DEPT: [facility] Surgical RECD BY: Dorita Gomez ENTERED: 06/11/25 11:00 SP TYPE: Surgical OTHR DR: Rei King MD Tissues: A - Colon Biopsy Procedures: Hematoxylin and Eosin Stain Gross and Microscopic Level 4
[2025-06-11 08:37] VITALS: BP 105/62; PULSE 66; RESP 17; O2SAT 99
[2025-06-11 08:47] VITALS: BP 125/77; PULSE 66; RESP 20; O2SAT 100
[2025-06-11 08:57] VITALS: BP 131/85; PULSE 68; RESP 18; O2SAT 100
== END 2025-06-11 09:07 | disposition home or self-care (01) ==
PROVIDERS: PCP Family Medicine Adolescent Medicine; Referring Provider Internal Medicine Gastroenterology; Visit Provider Internal Medicine Gastroenterology
PROC: 0DJD8ZZ Inspection of Lower Intestinal Tract, Via Natural or Artificial Opening Endoscopic (ICD-10-PCS; CPT 45378; principal; 2025-06-11 08:30)
DX: Z09 Encounter for follow-up examination after completed treatment for conditions other than malignant neoplasm (principal); D12.0 Benign neoplasm of cecum; K57.30 Diverticulosis of large intestine without perforation or abscess without bleeding; E78.2 Mixed hyperlipidemia; I10 Essential (primary) hypertension; E11.42 Type 2 diabetes mellitus with diabetic polyneuropathy; E66.9 Obesity, unspecified; Z68.33 Body mass index [BMI] 33.0-33.9, adult; Z79.82 Long term (current) use of aspirin; Z79.1 Long term (current) use of non-steroidal anti-inflammatories (NSAID); Z98.890 Other specified postprocedural states; Z95.1 Presence of aortocoronary bypass graft; Z90.49 Acquired absence of other specified parts of digestive tract; Z86.711 Personal history of pulmonary embolism; Z87.891 Personal history of nicotine dependence; Z80.0 Family history of malignant neoplasm of digestive organs; Z80.3 Family history of malignant neoplasm of breast; Z82.49 Family history of ischemic heart disease and other diseases of the circulatory system
CPT/HCPCS: 45380; 88305; J2003; J2704; J7120

== ENCOUNTER 2025-08-13 09:34 | Outpatient (CLI) | payer OTHER, SELFPAY ==
--- NOTE | 2025-08-13 10:37 | ECG_ITS ---
Test Date: 2025-08-13 10:53:52 Measurements Intervals [place] Rate: 74 P: 13 MI: 143 QRS: -29 QRSD: 97 T: 20 QT: 361 QTc: 402 Interpretive Statements SINUS RHYTHM BORDERLINE LEFT AXIS DEVIATION [QRS AXIS < -20] OTHERWISE NORMAL ECG WARNING: DATA QUALITY MAY AFFECT INTERPRETATION No previous ECG available for comparison Electronically Signed On 08-13-2025 13:24:01 MAKEUP SALES ADVISOR by Jose Stanford M.D.
[2025-08-13 11:03] LABS: Hematocrit 48.6 % (42.0-52.0); Hemoglobin 16.1 g/dL (14.0-18.0); Immature Granulocyte Percent A 0.3 % (0-0.5); Lymphocytes Absolute Auto 1.62 K/mm3 (0.9-3.2); Mean Corpuscular HGB Conc 33.1 g/dl (32-36); Mean Corpuscular Hemoglobin 31.1 pg (26-34); Mean Corpuscular Volume 93.8 fl (80-100); Nucleated Red Blood Cells Absolute Auto 0.000 K/mm3 (0.0-0.012); Nucleated Red Blood Cells Perc 0.0 % (0.0-0.2); Platelet Count Result 231 k/mm3 (150-375); Red Blood Count 5.18 M/mm3 (4.6-6.20); White Blood Count 6.7 K/mm3 (4.5-10.0)
[2025-08-13 11:14] LABS: Anion Gap 10 mmol/L (4-12); Blood Urea Nitrogen 14 mg/dL (9-20); Calcium 9.1 mg/dL (8.4-10.2); Carbon Dioxide 24 mmol/L (22-30); Chloride 102 mmol/L (98-107); Estimated Glomerular Filt Rate > 60; Glucose 90 mg/dL (65-110); Potassium 4.2 mmol/L (3.4-5.0); Sodium 136 mmol/L (137-145)
[2025-08-13 11:51] LABS: Carcinoembryonic Antigen 1.8 ng/mL (0.0-3.0)
== END 2025-08-13 09:35 | disposition home or self-care (01) ==
LOC: ANHSURGERY 09:40
PROVIDERS: PCP Family Medicine Adolescent Medicine; Visit Provider Surgery
DX: D12.6 Benign neoplasm of colon, unspecified (principal); K63.5 Polyp of colon; E78.2 Mixed hyperlipidemia; I10 Essential (primary) hypertension
CPT/HCPCS: 36415; 80048; 82378; 85025; 86850; 86900; 86901; 93005

== ENCOUNTER 2025-08-25 14:30 | Inpatient (IN) | payer OTHER, SELFPAY ==
[2025-08-13 10:03] VITALS: BP 149/83; PULSE 80; RESP 16; TEMP 36.4; O2SAT 98; BMI 35.2
--- NOTE | 2025-08-13 10:20 | PC.NURSE ---
[facility] has started construction of its new state of the art ER which will open Spring 2026. With this, we anticipate parking may be a challenge for some our surgical patients and families. Parking spaces are limited but are available for all Surgical, obstetrics, and ER patients sharing this lot. If you arrive and find you are having a hard time finding a parking space, please note that we understand the challenges, please drive around the hospital and park near Hospital Entrance 1. When you enter this entrance, you can ask a volunteer to direct or take you back to the surgical waiting area to check in. We appreciate everyone?s understanding of these expected challenges while we build for your future. Report to the Outpatient Waiting Room, entrance under the green pavilion located off [address], at time __0700am on date ___08/25/25____. Planned Procedure Time: __0900am .? Time changes happen often and if your time is changed the preop area will call you the afternoon before. - You and your visitor will be asked to self-screen and do not enter if you have any COVID symptoms. Please call surgeon if you need to reschedule. - A mask is optional within the hospital at this time. Patients may have No food the day before surgery, and just clear liquids as directed (water, carbonated beverages, clear teas, apple juice) until 3 hours prior to surgery with a maximum of 20 ounces by (0600am). No smoking, or chewing tobacco (or any form of nicotine). No chewing gum, candy or mints. Bowel Prep per Dr Mead and Ensure Bundle - pt is aware Take only the following medications with a SIP of water on the morning of surgery: Preop Antibiotics as prescribed DO NOT STOP ANY OF YOUR OTHER PRESCRIPTION MEDICATIONS PRIOR TO SURGERY EXCEPT THE FOLLOWING Hold all vitamins and supplements for 3 days per anesthesiologist. Medications to discontinue per physician ___NONE Date to take last dose___NONE Please no make-up, nail senegalese, hairspray, perfume, deodorant, or body powder the day of surgery.? No jewelry (including any body piercings) or valuables the day of surgery, leave them at home.? Please take a shower or bath the night before, or the morning of, surgery with an antibacterial soap. SCRUB W TAMIICLEANSE PER DR MEAD ? Wear comfortable, loose fitting clothing.? - Jewelry must be removed prior to entering the operating room.? Rings and piercings that are not removed may be cut off. - The hospital will not accept responsibility for valuables.? - Please leave all valuables, including medications, at home the day of surgery. If you are going home after surgery, a licensed motor coach bus driver must drive you home.? - NO public transportation without another adult if you receive anesthesia. - We recommend that an adult stay with you for 24 hours following discharge. - We also recommend that you do not drive, make important decision, drink alcoholic beverages, or take any drugs that were not prescribed by your health care provider for at least 24 hours after your discharge time. Follow any additional instructions given to you from your surgeon. Telephone instructions given to _Patient and asked if any additional questions and then verbalized understanding. Patient advised to call surgeon office or pre surgery nurse liaison [phone] if any additional questions.
--- NOTE | 2025-08-23 13:44 | PM.IMHP ---
H&P: HPI History of Present Illness Date/Time: 08/23/25 13:44 Chief Complaint: Cecal polyp with dysplasia Narrative: Patient is a 59-year-old man who has a family history of colon cancer. In November of 2024 E had a colonoscopy. This showed a 3 cm polyp in the cecum that appeared to be adenomatous. The polyp was removed and pathology showed tubulovillous adenoma with extensive, high grade, dysplasia. The dysplasia did not extend to the margin. The polyp had been thought to have been removed successfully, however, repeat colonoscopy 6 months later did show a recurrent 4 mm, flat, sessile recurrence. Pathology of this polyp showed tubulovillous adenoma. The recurrent polyp was not felt to be suitable for resection. Patient was seen in the office. He is taken to surgery at this time for hand access laparoscopic right colectomy with anastomosis. Patient has non insulin dependent diabetes. He has a history of pulmonary embolism but is no longer taking any anticoagulation. He does have a history of stable coronary artery disease. Review of Systems Review of Systems: All systems reviewed & are unremarkable except as noted in HPI and below (HPI) [facility] Past Medical History Medical History (Updated 08/23/25 @ 14:02 by Nacho Ying MD) Type 2 diabetes mellitus with diabetic polyneuropathy Diabetic polyneuropathy Benign fasciculations Abnormal stress test Personal history of nicotine dependence quit 2010 History of pulmonary embolism (2013) Hepatic steatosis 07/18 Mixed hyperlipidemia Hypertension Surgical History Surgical History Hx of CABG History of cholecystectomy (12/2021) 01/04/22 History of excision of pilonidal cyst History of tonsillectomy Family History Family History Sibling Depression Father Family history of Parkinson's disease Mother Diabetes mellitus Heart disease Breast cancer Carcinoma of colon Grandparent Cerebrovascular accident Acute myocardial infarction Other Family history of allergic disorder Family history of arthritis Family history of cardiovascular disease Hypertension Social History Social History Smoking packs per day: 3.5 Smoking cigarettes per day: 70.0 Years smoked: 20 Smoking pack-years: 70.00 Smoking status: Former smoker Tobacco type: cigarettes, pipe, cigars and smokeless tobacco Smokeless tobacco user: chewing tobacco Second hand tobacco smoke exposure: No Smoking end date: 11/28/04 Additional smoking assessment comments: Denies nicotine Alcohol intake: never Substance use: never Substance use type: does not use Living arrangements: with family Additional living arrangements comments: 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/Education: 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 Gender identity (if verbalized by the patient): Male Sexual Orientation (if Verbalized by the Patient): Straight or Heterosexual Spiritual care concerns: No Agree to blood products: Yes Meds Home Medications and Allergies Home Medications ?Medication ?Instructions ?Recorded ?Confirmed ?Type aspirin 81 mg tablet 81 mg PO DAILY 12/26/22 08/13/25 History nitroglycerin 0.4 mg sublingual 0.4 mg sublingual Q5M PRN chest 12/02/23 08/13/25 Rx tablet pain #25 tabs blood sugar diagnostic (OneTouch #100 ea 05/05/24 08/13/25 Rx Verio test strips) ezetimibe 10 mg tablet 10 mg PO DAILY #90 tabs 11/05/24 08/13/25 Rx ibuprofen 800 mg tablet 800 mg PO TID PRN Pain #90 tabs 11/05/24 08/13/25 Rx loratadine 10 mg tablet (Claritin) 10 mg PO DAILY 05/27/25 08/13/25 History ciprofloxacin HCl 500 mg tablet 500 mg PO .COMPLEX #1 tablet 06/24/25 08/13/25 Rx metronidazole 500 mg tablet 500 mg PO Q8H #3 tabs 06/24/25 08/13/25 Rx Allergies Allergy/AdvReac Type Severity Reaction Status Date / Time shrimp Allergy Intermediate THROAT Verified 08/13/25 10:01 SWELLING metoclopramide Allergy Unknown Agitated Verified 08/13/25 10:01 BEE STING Allergy Mild WELTS, N/V Uncoded 06/24/25 08:37 atorvastatin AdvReac Severe Muscle Pain Uncoded 06/24/25 08:37 Exam Const: General: comfortable, no acute distress, alert and awake HENMT: Head: normocephalic and atraumatic Mouth: Yes Normal oral and palatal mucosa present Eyes: Conjunctivae: conjunctivae normal Pupils: Equal, round and reactive pupils present EOM: EOMs intact bilaterally Neck: Neck: normal visual inspection, no lymphadenopathy and nontender Resp: Effort & Inspection: normal respiratory effort Auscultation: clear to auscultation bilaterally Cardio: Rate: regular rate Rhythm: regular rhythm Heart sounds: no gallops, no murmurs and no rubs GI: Inspection: normal to inspection and non-distended GI Palp: Yes Soft to palpation, No Tenderness to palpation present (GI), No Hepatomegaly present and No Splenomegaly present Skin: Lesions: no lesions Rashes: no rashes Neuro: General: no focal motor deficits and CN's II-XI intact bilaterally Cranial nerves: Yes Equal, round and reactive pupils present, Yes Bilaterally intact EOM present, Yes facial symmetry and Yes Midline tongue present Speech: normal speech Motor exam (neuro): 5/5 motor strength present throughout and Motor abnormalities not present Extrem: General: no clubbing, cyanosis or edema and edema Psych: Affect: normal affect Thought process: Normal thought process present Insight: Good insight present (Psych) Assessment and Plan Assessment and plan (1) Cecal polyp: Code(s): K63.5 - Polyp of colon Status: Acute Assessment and Plan: Recurrent remnant of previously removed 3 cm cecal polyp. The 3 cm polyp was tubulovillous in nature and he had extensive high-grade dysplasia. Recurrent polyp is unable to be removed colonoscopically. Patient is taken to surgery at this time for hand access laparoscopic right colectomy. The procedure, risks, benefits have been discussed. The usual length of the surgery and length of recovery have been discussed. All questions were answered. He understands and agrees to go ahead. (2) Atherosclerotic heart disease of [place] coronary artery without angina pectoris: Qualifiers: [place] vs. 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
[2025-08-25] VITALS (11 sets, daily range): BP systolic 117–154; BP diastolic 64–82; PULSE 83–109; RESP 11–20; TEMP 36.3–37; O2SAT 92–98; BMI 33.9
--- OUTSIDE RECORDS SUMMARY | 2025-08-25 00:26 | XMS_ITS | Clinical Summary ---
Author Organization [facility] Address [address] [place] [id number] Care Team Providers Care Patent Legal Assistant Name Role Phone Unavailable Primary Care Provider [...] of 2) 2014 COVID-19 Vaccine ( - 2024-2 6 season) 2025 Influenza Adult (#1) 2025 RSV Immunization or 60+ Years (1 - 1-dose 75+ series) 12/01/2039 Hepatitis A Vaccines Aged Out No long er eligible based on patient's age to complete this topic Meningococcal B Vaccine Aged Out No l onger eligible based on patient's age to complete this topic Meningococcal Vaccine Aged Out No shubham chester eligible based on patient's age to complete this topic RSV Immunizations Under 20 Months Aged Out No longer eligible based on patient's age to complete this topic
--- OUTSIDE RECORDS SUMMARY | 2025-08-25 00:26 | XMS_ITS | Data Portability ---
Author Organization [facility], Main Office Address [address] [place] [address] Care Team Providers Care Irrigator Sprinkling System Name Role Phone MARION SNELL Referring Provider Assessment Encounter Date Assessment Date Assessment LastModified by Organization Details LastModified Time 06/25/2024 06/25/2024 This note is dictated and transcribed by [employer]. Surgical Nurse variances may occur. Despite proofreading, typographical errors may occur. Occasional wrong-word or '[id number]' substitutions may have occurred due to the inherent limitations of voice recording. Read the chart carefully and recognize, using context, where substitutions have occurred. Not available 06/25/2024 16:25:15 07/13/2024 07/13/2024 This note is dictated and transcribed by [employer]. Surgical Nurse variances may occur. Despite proofreading, typographical errors may occur. Occasional wrong-word or '[id number]-[id number]' substitutions may have occurred due to the [...] ammonium lactate 12 % lotion 2023 024 [facility] [address] [place], [address], 16:24:37 Patient TargetsNo targets recorded. Patient InstructionsNo instructions recorded. Reason for Referral None Reported. Problems Name Problem SNOMED Code Status Onset Date Resolution Date Notes Provider Name and Address Organization Details Recorded Time Anxiety 59883907 Active 2023 Karley Khan dawson, [facility] 4 15:45:20 Diabetes mellitus 68463933 Active 2023 Karley osman, [facility] 4 15:45:31 Hyperchole sterolemia 00319327 Active 2023 Karley Khan dawson [facility] 4 15:45:40 Transient cerebral ischemia 721267603 Active 2023 Karley Khan dawson, [facility] 4 15:45:52 Pain in right foot 3757800339420 07 Active 2023 Eran Mckeon DPM [address], [address], [place], [address] , [facility] 4 16:23:50 Porokerato sis 243934723 Active 2023 Eran Mckeon DPM [address], [address], [place], [address] , [facility] 4 16:24:07 Notes:BLOOD CLOTS, PULMONARY EMBOLISM, USE OF BLOOD THINNERS Problem Notes None recorded. Procedures Surgical History Date Name Laterality Status Provider Name and Address Organization Details Recorded Time 07/13/20 24 Callus Debridement, One completed Eran Mckeon DPM [address], [address], [place], [address], [facility] 07/13/2024 16:39:12 06/25/20 24 Callus Debridement, One completed Eran Mckeon DPM [address], [address], [place], [address], [facility] 06/30/2024 09:24:02 09/30/19 22 cholecystectomy completed Karley Dodd [facility] 06/25/2024 15:48:09 Imaging Results None recorded. Procedure Notes None recorded. Medical Equipment None Reported. Allergies Allergen ID Allergen Name Allergen Category Reaction Reaction Severity Criticality Documentation Date Start Date Code Code System Note Provider Name and Address Organization Details Recorded Time 09175 Reglan medicatio n Not available Not available Not available 06/25/2024 9230 RxNorm Karley osman [facility] 4 15:43:34 07523 shrimp allergeni c extract food Not available Not available Not available 06/25/2024 78427 2 RxNorm Karley Khan [facility] 4 15:43:42 Medications Name Sig Start Date [...] Updated DateTime 06/25/2024 177.8 cm 35.9 kg/m2 191854.09 g Karley Khan [id number] 06/25/2024 15:43:04 Date Recorded Body height Body mass index (BMI) Body weight Provider Name and Address Organization Details Last Updated DateTime 07/13/2024 177.8 cm 35.9 kg/m2 597651.09 g Zeina Dmitry [facility] [employer] [facility] [employer] 07/13/2024 15:51:41 Social History Question Answer Notes LastModified by Organizat ion Details LastModified Time Tobacco Smoking Status Former Smoker Karley osman [facility] [employer] [facility] 06/25/2024 15:47:52 When Did You Quit Smoking? [...] Diagnosis SNOMED-CT Code Diagnosis ICD10 Code Diagnosis IMO Codes Diagnosis Note [id number] Eran Mckeon DPM [facility] [place] [address] [place] [address] 06/25/2024 15:34:22 07/02/2024 16:13:32 Pain in right foot [id number] 03754 M79.671 secondary to below Porokeratosis 295796287 Q82.8 sub 5th met head - right footdebrid ed without incidentof floadingwe ar supportive shoe- no slip on stylefollo w up in 3 weeks [id number] Eran Mckeon DPM [facility] [place] [address] [place] [address] 07/13/2024 15:48:40 07/14/2024 14:30:34 Porokeratosis 308215783 Q82.8 sub 5th met head - right foot --- Resolvedwe ar supportive shoe- no slip on stylefollo w up as needed Health Concerns Section Related Observation LastModified by Organization Detai ls LastModified Time None Recorded Concern Status LastModified by Organization Details LastModified Time None Recorded Advance Directives Directive None Recorded Payers Insurance Date Sequence Insurance Name Policy Number Policy Horne Covered Member ID Horne Member ID Guarantor Name 07/12/2024 1 [facility] [id number] Morris Bonilla [id number] Morris Vallejo Notes Date Note Type Note Provider Name [...] this has been ongoing since . Eran Mckoen DPM [address], [address], [place], [address], [facility] 06/30/2024 09:24:59 07/13/2024 text/html . Patient is a 58-year-old male who returns for porokeratosis the area has completely resolved he denies any pain or signs of wounds or infection to the area. Patient denies any other complaints. Eran Mckeon DPM [address], [place], [address], [facility] 07/13/2024 16:39:20
--- OUTSIDE RECORDS SUMMARY | 2025-08-25 00:26 | XMS_ITS | Clinical Summary ---
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
--- OUTSIDE RECORDS SUMMARY | 2025-08-25 00:26 | XMS_ITS | Clinical Summary ---
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 Gender Identity Not on file Sexual Orientation Not on file Last Filed Vital Signs Vital Sign Reading Time Taken Comments Blood Pressure 110/80 12/14/2022 3:22 PM CDT Pulse 115 12/14/2022 3:22 PM CDT Temperature 37.2 C (98.9 F) 10/09/2021 7:21 PM COMMUNICATIONS MEDIA PROFESSOR Respiratory Rate 18 10/09/2021 7:21 PM COMMUNICATIONS MEDIA PROFESSOR Oxygen Saturation 95% 12/14/2022 3:22 PM CDT Inhaled Oxygen Concentration - - Weight 135.2 kg (298 lb) 12/14/2022 3:22 PM CDT Height 176.5 cm (5' 9.5) 12/14/2022 3:22 PM CDT Body Mass Index 43.38 12/14/2022 3:22 PM CDT Plan of Treatment Health Maintenance Due Date Last Done Comments Colon Cancer Screening-Colonoscopy 1965 Depression Screening 1965 Hepatitis C Screening 1965 Prostate Cancer Screening-PSA 1965 DTaP/Tdap/Td Vaccine (1 - Tdap) 12/01/1975 Hepatitis B Screening 1982 Regular Well Visit/Exam 18-64 1982 Zoster Vaccine (1 of 2) 2014 Covid-19 Vaccine (2 - 2024-2 6 season) 2025 12/06/2020 Influenza Vaccine (#1) 2025 Pneumococcal vaccine <65 Aged Out No longer eligible based on patient's age to complete this topic Insurance [facility] CHOICE PLUS Care Teams Customer Service Security Officer Relationship Specialty Start Date End Date Rei King MD PCP - General 07/24/16
[2025-08-25] MEDS: LACTATED RINGERS 1,000 ML 30 ML IV CONT ×2 (07:35→13:05)
[2025-08-25] MEDS: KETOROLAC 15 MG/ML VIAL (*BKC) IV PUSH (07:43)
[2025-08-25] MEDS: ACETAMINOPHEN 500 MG TABLET 1000 MG PO (07:43)
--- NOTE | 2025-08-25 08:23 | WPDHPUPDATE1 ---
History and Physical Update Update Date/Time: 08/25/25 08:23 History and Physical has been reviewed, including an updated exam of the patient. There are NO changes in the patient's condition. Risks, benefits, and alternatives have been discussed and questions answered. Patient agrees to proceed with procedure.
[2025-08-25] MEDS: ALVIMOPAN 12 MG CAPSULE PO (08:25)
--- NOTE | 2025-08-25 09:12 | P.PNAN_ITS ---
Anes - Initial Pre Proc Eval Procedure: Operation Date: 08/25/25 09:00 Proposed Procedures p Hand Assisted Laparoscopic Right Colectomy - Nacho Ying MD Date/Time: 08/25/25 09:12 Surgeon: Nacho Ying MD Pre Op Diagnosis: Cecal polyp with Dysplasia Patient Data Age: 59 Gender: M Height: 1.78 m Weight: 107.2 kg Last Vital Signs Temp 97.5 F L 08/25/25 06:45 Pulse 91 08/25/25 06:45 Resp 16 08/25/25 06:45 BP 124/76 08/25/25 06:45 Pulse Ox 98 08/25/25 06:45 O2 Del Method Room Air 08/25/25 06:45 Allergies Allergy/AdvReac Type Severity Reaction Status Date / Time shrimp Allergy Intermediate THROAT Verified 08/25/25 07:14 SWELLING atorvastatin AdvReac Severe Muscle Pain Verified 08/25/25 07:15 metoclopramide AdvReac Unknown Agitated Verified 08/25/25 07:15 BEE STING Allergy Mild WELTS, N/V Uncoded 06/24/25 08:37 Home Medications ?Medication ?Instructions ?Recorded ?Confirmed ?Type aspirin 81 mg tablet 81 mg PO DAILY 12/26/2208/01 History nitroglycerin 0.4 mg sublingual 0.4 mg sublingual Q5M PRN chest 12/02/23 08/13/25 Rx tablet pain #25 tabs blood sugar diagnostic (OneTouch #100 ea 05/05/2407/31 Rx Verio test strips) ezetimibe 10 mg tablet 10 mg PO DAILY #90 tabs 02/0 03/2408/25/25 Rx ibuprofen 800 mg tablet 800 mg PO TID PRN Pain #90 t abs 11/05/24 08/13/25 Rx loratadine 10 mg tablet (Claritin) 10 mg PO DAILY 05/0108/25/25 History ciprofloxacin HCl 500 mg tablet 500 mg PO .COMPLEX #1 tablet 06/24/25 08/25/25 Rx metronidazole 500 mg tablet 500 mg PO Q8H #3 tabs 06/0108/25/25 Rx Patient hx anesthesia problems: none Family hx anesthesia problems: none Results Review: All pre-operative results and documents have been reviewed as part of the pre- operative evaluation. [facility] Past Medical History Medical History (Updated 08/23/25 @ 14:02 by Nacho Ying MD) Type 2 diabetes mellitus with diabetic polyneuropathy Diabetic polyneuropathy Benign fasciculations Abnormal stress test Personal history of nicotine dependence quit 2010 History of pulmonary embolism (2013) Hepatic steatosis 07/18 Mixed hyperlipidemia Hypertension Surgical History Surgical History Hx of CABG History of cholecystectomy (12/2021) 01/04/22 History of excision of pilonidal cyst History of tonsillectomy Family History Family History Sibling Depression Father Family history of Parkinson's disease Mother Diabetes mellitus Heart disease Breast cancer Carcinoma of colon Grandparent Cerebrovascular accident Acute myocardial infarction Other Family history of allergic disorder Family history of arthritis Family history of cardiovascular disease Hypertension Social History Social History Smoking packs per day: 3.5 Smoking cigarettes per day: 70.0 Years smoked: 20 Smoking pack-years: 70.00 Smoking status: Former smoker Tobacco type: cigarettes, pipe, cigars and smokeless tobacco Smokeless tobacco user: chewing tobacco Second hand tobacco smoke exposure: No Smoking end date: 11/28/04 Additional smoking assessment comments: Denies nicotine Alcohol intake: never Substance use: never Substance use type: does not use Living arrangements: with family Additional living arrangements comments: 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/Education: occupation 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 Gender identity (if verbalized by the patient): Male Sexual Orientation (if Verbalized by the Patient): Straight or Heterosexual Spiritual care concerns: No Agree to blood products: Yes Anes - Eval Final PreProcedure Day of Procedure 08/25/25 09:12 Patient weight: obese Heart: regular rate and rhythm Lungs: clear to auscultation Airway: Mallampati scale class II Neurological: alert and oriented Last oral intake: >/= 8 hours ASA classification: III Emergent: no Anesthetic plan: proceed Anesthesia type and monitoring: general ETT and standard monitoring Results Review: All pre-operative results and documents have been reviewed as part of the pre- operative evaluation. Informed Consent: The patient's anesthetic plan and its attendant risks and benefits were discussed with the patient/family/POA. Questions were solicited and answers provided to the satisfaction of the patient/family/POA.
[2025-08-25] MEDS: ceFAZolin 2 GM in SODIUM CHLORIDE 0.9% IV 50 ML 100 ML IVPB (09:25)
[2025-08-25] MEDS: metroNIDAZOLE 500 MG/ISO 100ML 500 MG/100 ML BAG 100 MG IVPB (09:40)
[2025-08-25] MEDS: BUPIVACAINE/EPINEPHRINE 0.5% 50 ML VIAL 30 ML INFILTRATE (10:13)
--- NOTE | 2025-08-25 11:33 | S_PTH ---
PATIENT: Morris Vallejo LOC: RYP6TPH #:[id number] AGE/SX: 59/M ROOM: 346 RE08/25/[address]: Bre Matthews PA-C : 1965 BED: 01 DIS: 08/27/2025 SPEC #: [id number] RECD: 08/25/25 13:07 STATUS: JOSE DANIEL GIORDANO #: [id number] SUSHANT: 08/25/25 11:[address]: Nacho Ying DEPT: [facility] Surgical RECD BY: Jagdeep Whalen ENTERED: 08/25/25 13:07 SP TYPE: Surgical OTHR DR: Rei King MD Tissues: A - Colon Segment Tumor Procedures: Hematoxylin and Eosin Stain Gross and Microscopic Level 6
[2025-08-25] MEDS: fentaNYL CITRATE INJ (*CRX) 100 MCG/2 ML VIAL 25 MCG IV PUSH ×3 (13:19→13:30)
--- NOTE | 2025-08-25 13:28 | P.OP_ITS ---
Procedure Note - Detailed Date of Procedure 08/25/25 Pre-op Diagnosis Cecal polyp with Dysplasia Post-op Diagnosis Same Procedure Performed Hand access laparoscopic right colectomy with ileotransverse anastomosis Surgeon Nacho Ying MD Information Lead Johana VELASQUEZA, Alva LOZA Anesthesia General and Local Indications Patient was found to have a 3 cm polyp last November with severe dysplasia. It was thought to have been completely removed but repeat colonoscopy in May showed a small recurrence. Patient is taken to surgery now for hand access laparoscopic right colectomy for dysplastic polyp. Findings No abnormal findings appreciated Description of Procedure Patient was taken to surgery and induced into general anesthesia. The abdomen is prepped and draped. A supra umbilical midline incision was marked on the [place]. Local was infiltrated and then an incision was made. This was deepened through the subcutaneous and down to the midline fascia. The fascia was also infiltrated with local anesthetic. We then entered the midline fascia and opened the wound the length of the incision. I placed a hand in the abdomen and checked for any abdominal adhesions or other abnormalities that might interfere with placement of the Сергей wound guard. There were none. I went ahead and placed the Сергей. The GelPort was then placed. With the hand then in the abdomen, a right lower quadrant 5 mm trocar was placed. Through this, we insufflated CO2. Once the abdomen was distended, the camera was placed. We placed another 5 mm port in the left lower quadrant under direct visualization. The ports were placed after infiltrating local anesthetic as well. I then exposed the distal ileum and cecum. The junction of the mesentery with the retroperitoneum was exposed. I used the LigaSure for virtually all the dissection. I divided the peritoneum at the retroperitoneal junction under the distal ileum and cecum. I carefully gained access to the retroperitoneum using a combination of the LigaSure and blunt dissection with anterior retraction. A medial to lateral dissection was then able to be performed up to the transverse colon mesentery. I then reviewed the mesentery of the distal ileum. Using the LigaSure, I divided the distal mesentery up to the distal ileum. This was essentially bloodless. I then divided the mesentery over to the ileocolic artery and vein. I dissected around the ileocolic vessels. I then used the LigaSure to cauterized and divide the ileocolic artery and vein. There was no bleeding. I continued dissection of the right colon mesentery up to nearly the transverse colon mesentery. I then went back and expose the lateral peritoneal attachments of the ascending colon. Using the LigaSure, I divided these from caudal to cephalad to the area of the transverse colon and hepatic flexure. There were adhesions of the omentum to the anterior abdominal wall and to the gallbladder fossa from previous laparoscopic cholecystectomy. These omental adhesions were taken down with the LigaSure. I then carefully dissected the mesentery of the transverse colon and divided it above the duodenum and starting on the proximal transverse colon mesentery. I then divided the hepatocolic ligament and continued to mobilize the proximal transverse colon and also divide the mesentery to the transverse colon. Once I had adequate mobilization of the proximal transverse colon, we stopped insufflation and removed the GelPort. I was then able to eviscerate the ascending colon with the associated distal ileum and proximal transverse colon. I used the TLC 75 stapler to divide both the distal ileum and the proximal transverse colon, using 2 separate firings. I was then able to pass off the right colon specimen in formalin. The distal ileal stump and the proximal transverse colon stump were laid in proximity to form a [id number] but functional end-to-end anastomosis. Noncrushing bowel clamps were placed proximal and distal to the anastomosis. A traditional 2 layer hand- sewn anastomosis was then performed. The posterior outer layer and anterior outer layer were 0 muscular interrupted 4-0 silk suture. The posterior inner layer was running locking 4-0 chromic suture in bidirectional fashion. The anterior inner layer was a running inverting suture or Kasson stitch. The anastomosis looked very good. There was no evidence of hematoma or vascular impairment. It was not under any tension. I then placed the abdominal contents back in the abdomen and laid the omentum over top. We replaced the GelPort and then reinsufflated with CO2. I looked at all the areas of dissection and particularly at the anastomosis laparoscopically. All looked good with no evidence of bleeding or ischemia. We then stopped insufflation and removed the GelPort. CO2 was evacuated and we removed the 5 mm trocars. The Сергей was removed. The surgical team then changed gown and gloves. A clean closure tray of fresh drapes and instruments were used to close the abdominal wounds. The 2 trocar sites were closed with subcuticular 4-0 Monocryl skin suture. The hand access port site was closed with bidirectional running 1. PDS. The subQ was closed with interrupted 3-0 Vicryl suture. The skin was loosely approximated with subcuticular 4-0 Vicryl skin suture. Finally the skin was closed with running 4-0 Monocryl skin suture. All wounds were dressed with Exofin surgical adhesive. The patient was then awakened and extubated. He transferred to recovery in good condition. Sponge needle counts were correct x2. Estimated Blood Loss -50 Drains No Packing No Pathology Yes (Right colectomy specimen) Complications None Condition Stable Disposition PACU [facility] Billing Surgery - Charge Forward: Surgery Billing (Hand access laparoscopic right colectomy with ileotransverse anastomosis)
[2025-08-25] MEDS: ONDANSETRON INJ 4 MG/2 ML VIAL IV PUSH (13:38)
--- NOTE | 2025-08-25 14:32 | ADMGEN ---
This patient, Morris Vallejo, was admitted to -. Patient/family oriented to hospital policies and general routines including ID bracelet, bed and alarms, visiting hours, pain management, procedures, bathroom and other care routines, personal items, smoking policy, room service/diet, and visiting hours. Information on how to activate the Rapid Response Team has been discussed. Patient/Family are encouraged to report perceived risks to care and to ask questions if they do not understand what they are told or what they should do.
[2025-08-25] MEDS: LACTATED RINGERS 1,000 ML 100 ML IV CONT (15:06)
[2025-08-25] MEDS: oxyCODONE/ACETAMINOPHEN (*CRX) 10-325 MG TABLET 1 TAB PO (16:52)
[2025-08-25] MEDS: MORPHINE SULFATE (*CRX) 4 MG/ML INJ IV PUSH (21:50)
[2025-08-26 00:35] VITALS: BP 134/68; PULSE 101; RESP 18; TEMP 36.3; O2SAT 97
[2025-08-26] MEDS: oxyCODONE/ACETAMINOPHEN (*CRX) 10-325 MG TABLET 1 TAB PO ×4 (01:08→22:44)
[2025-08-26] MEDS: LACTATED RINGERS 1,000 ML 100 ML IV CONT ×3 (01:12→21:11)
[2025-08-26 04:51] LABS: Hematocrit 43.4 % (42.0-52.0); Hemoglobin 14.7 g/dL (14.0-18.0); Mean Corpuscular HGB Conc 33.9 g/dl (32-36); Mean Corpuscular Hemoglobin 31.3 pg (26-34); Mean Corpuscular Volume 92.5 fl (80-100); Platelet Count Result 213 k/mm3 (150-375); Red Blood Count 4.69 M/mm3 (4.6-6.20); White Blood Count 16.6 K/mm3 (4.5-10.0)
[2025-08-26 05:15] LABS: Anion Gap 2 mmol/L (4-12); Blood Urea Nitrogen 11 mg/dL (9-20); Calcium 8.6 mg/dL (8.4-10.2); Carbon Dioxide 28 mmol/L (22-30); Chloride 100 mmol/L (98-107); Estimated CRCL calculation 97 ml/min; Estimated Glomerular Filt Rate > 60; Glucose 126 mg/dL (65-110); Potassium 4.5 mmol/L (3.4-5.0); Sodium 130 mmol/L (137-145)
[2025-08-26 05:45] VITALS: BP 135/64; PULSE 91; RESP 18; TEMP 36.4; O2SAT 97
--- NOTE | 2025-08-26 07:02 | WPDANESPN ---
Anes - Prog Note Post-Op Date/Time: 08/26/25 07:02 Cardiovascular status: normal Respiratory status: normal Airway patency: baseline Mental status: baseline Post-Op hydration status: normal Vital Signs: Last Vital Signs Temp 36.3 C L 08/26/25 00:35 Pulse 101 H 08/26/25 00:35 Resp 18 08/26/25 00:35 BP 134/68 08/26/25 00:35 Pulse Ox 97 08/26/25 00:35 O2 Del Method Room Air 08/25/25 14:20 O2 Flow Rate 8 08/25/25 13:35 Pain Score (VAS): 2 I/O: Intake & Output 08/25/25 08/25/25 08/26/25 15:59 23:59 07:59 Intake Total 250 1000 Balance 250 1000 Laboratory Tests 08/26/25 04:42 08/26/25 04:42 08/26/25 04:42 WBC 16.6 H RBC 4.69 Hgb 14.7 Hct 43.4 MCV 92.5 MCH 31.3 MCHC 33.9 RDW 13.3 Plt Count 213 MPV 8.5 Sodium 130 L Potassium 4.5 Chloride 100 Carbon Dioxide 28 Anion Gap 2 L BUN 11 Creatinine 0.87 Estim Creat Clear Calc 97 Estimated GFR > 60 Glucose 126 H Calcium 8.6 Post-procedural complaints: none Patient Feedback: Patient satisfied with anesthetic care.
[2025-08-26] MEDS: EZETIMIBE 10 MG TABLET PO (08:46)
[2025-08-26] MEDS: LORATADINE 10 MG TABLET PO (08:46)
[2025-08-26] MEDS: ENOXAPARIN 40 MG/0.4 ML SYRINGE SUB-Q (08:46)
[2025-08-26] MEDS: PANTOPRAZOLE 40 MG TABLET PO (08:46)
[2025-08-26 09:50] VITALS: BP 129/74; PULSE 90; RESP 14; TEMP 37; O2SAT 96
[2025-08-26 12:15] VITALS: BP 138/70; PULSE 100; RESP 14; TEMP 37.1; O2SAT 97
[2025-08-26] MEDS: MORPHINE SULFATE (*CRX) 4 MG/ML INJ IV PUSH ×2 (12:24→21:04)
--- NOTE | 2025-08-26 12:27 | PM.PNGS ---
Progress Note: A&P Assessment and Plan (1) Cecal polyp: Code(s): K63.5 - Polyp of colon Status: Acute Assessment and Plan: status post right colectomy, await path, continue routine postoperative care, will advance diet as tolerated, encourage out of bed/IS Subjective Subjective Date/Time Seen: 08/26/25 12:27 Interval history: feels pretty good, some incisional soreness, having bowel function Review of Systems Review of Systems: All systems reviewed & are unremarkable except as noted in HPI and below Exam Const: General: cooperative, comfortable and no acute distress Resp: Auscultation: clear to auscultation bilaterally Cardio: Rate: regular rate Rhythm: regular rhythm GI: Inspection: normal to inspection, distended and incision GI Palp: Yes abdominal tenderness and Yes Soft to palpation Objective Data Vital Signs Vital Signs: Vital Signs - 24 hr 08/25/25 13:05 08/25/25 13:20 08/25/25 13:35 Temperature 36.5 C Pulse Rate 87 91 83 Respiratory Rate 11 L 17 12 Blood Pressure 136/68 117/64 120/69 Pulse Oximetry 97 96 98 Oxygen Delivery Simple Face Mask Room Air Simple Face Mask Oxygen Flow Rate 8 8 08/25/25 13:50 08/25/25 14:05 08/25/25 14:20 Temperature Pulse Rate 84 94 95 Respiratory Rate 12 14 20 Blood Pressure 144/81 H 131/75 143/82 H Pulse Oximetry 92 92 95 Oxygen Delivery Room Air Room Air Room Air Oxygen Flow Rate 08/25/25 15:05 08/25/25 15:15 08/25/25 16:15 Temperature 37.0 C 36.9 C 36.8 C Pulse Rate 93 98 96 Respiratory Rate 16 16 16 Blood Pressure 144/69 H 154/80 H 147/73 H Pulse Oximetry 97 93 94 Oxygen Delivery Oxygen Flow Rate 08/25/25 20:15 08/26/25 00:35 08/26/25 05:45 Temperature 36.3 C L 36.3 C L 36.4 C Pulse Rate 109 H 101 H 91 Respiratory Rate 18 18 18 Blood Pressure 133/72 134/68 135/64 Pulse Oximetry 96 97 97 Oxygen Delivery Oxygen Flow Rate 08/26/25 08:00 08/26/25 09:50 Temperature 37.0 C Pulse Rate 90 Respiratory Rate 14 Blood Pressure 129/74 Pulse Oximetry 96 Oxygen Delivery Room Air Oxygen Flow Rate Intake/Output Intake/Output: Intake & Output 08/23/25 08/24/25 08/25/25 08/26/25 23:59 23:59 23:59 23:59 Intake Total 250 3176.7 Balance 250 3176.7 Meds/Results Medications: Active Medications Generic Name Dose Route Start Last Admin Trade Name Freq PRN Reason Stop Dose Admin Acetaminophen 500 mg 08/25/25 14:30 Acetaminophen 500 Mg Tablet PO Q6H PRN Pain Rated 1-3 Alvimopan 12 mg 08/26/25 21:00 Alvimopan 12 Mg Capsule PO 09/02/25 20:59 Q12HR ALIVIA Ezetimibe 10 mg 08/26/25 09:00 08/26/25 08:46 Ezetimibe 10 Mg Tablet PO 10 mg DAILY ALIVIA Administration Enoxaparin Sodium 40 mg 08/26/25 09:00 08/26/25 08:46 Enoxaparin 40 Mg/0.4 Ml Syringe SUB-Q 40 mg DAILY ALIVIA Administration Lactated Ringer's 1,000 mls @ 100 mls/hr 08/25/25 14:30 08/26/25 11:10 Lr - Lactated Ringers Iv IV CONT 100 mls/hr .Q10H ALIVIA Administration Ibuprofen 800 mg in 200 mls @ 400 mls/hr 08/25/25 14:30 Caldolor 800 Mg/200 Ml IVPB Q6H PRN Breakthrough Pain Rated 1-3 or NPO Loratadine 10 mg 08/26/25 09:00 08/26/25 08:46 Loratadine 10 Mg Tablet PO 10 mg DAILY ALIVIA Administration Morphine Sulfate 2 mg 08/25/25 14:30 Morphine Sulfate (*Crx) 4 Mg/Ml Inj IV PUSH Q2H PRN Breakthrough Pain Rated 4-6 or NPO Morphine Sulfate 4 mg 08/25/25 14:30 08/25/25 21:50 Morphine Sulfate (*Crx) 4 Mg/Ml Inj IV PUSH 4 mg Q2H PRN Administration Breakthrough Pain Rated 7-10 or NPO Naloxone HCl 0.1 mg 08/25/25 14:30 Naloxone Hcl 0.4 Mg/Ml Vial IV PUSH Q2M PRN Opiate Reversal Nitroglycerin 0.4 mg 08/25/25 14:30 Nitroglycerin Sl 0.4 Mg Tablet SUBLINGUAL Q5M PRN Chest Pain Ondansetron HCl 4 mg 08/25/25 14:30 Ondansetron Inj 4 Mg/2 Ml Vial IV PUSH Q4H PRN Nausea And Vomiting Oxycodone/Acetaminophen 1 tablet 08/25/25 14:30 Oxycodone/Acetaminophen (*Crx) 5-325 Mg Tablet PO Q4H PRN Pain Rated 4-6 Oxycodone/Acetaminophen 1 tab 08/25/25 14:30 08/26/25 07:31 Oxycodone/Acetaminophen (*Crx) 10-325 Mg Tablet PO 1 tab Q6H PRN Administration Pain Rated 7-10 Pantoprazole Sodium 40 mg 08/26/25 09:00 08/26/25 08:46 Pantoprazole 40 Mg Tablet PO 40 mg QAM ALIVIA Administration Labs Labs: Laboratory Results - last 24 hr 08/26/25 04:42 WBC 16.6 H RBC 4.69 Hgb 14.7 Hct 43.4 MCV 92.5 MCH 31.3 MCHC 33.9 RDW 13.3 Plt Count 213 MPV 8.5 Sodium 130 L Potassium 4.5 Chloride 100 Carbon Dioxide 28 Anion Gap 2 L BUN 11 Creatinine 0.87 Estim Creat Clear Calc 97 Estimated GFR > 60 Glucose 126 H Calcium 8.6
[2025-08-26] MEDS: ONDANSETRON INJ 4 MG/2 ML VIAL IV PUSH (15:45)
[2025-08-26 20:50] VITALS: BP 145/90; PULSE 105; RESP 18; TEMP 37; O2SAT 92
[2025-08-26] MEDS: ALVIMOPAN 12 MG CAPSULE PO (21:05)
[2025-08-27 04:50] VITALS: BP 149/85; PULSE 106; RESP 18; TEMP 36.3; O2SAT 95
[2025-08-27] MEDS: MORPHINE SULFATE (*CRX) 4 MG/ML INJ IV PUSH (04:53)
[2025-08-27] MEDS: oxyCODONE/ACETAMINOPHEN (*CRX) 5-325 MG TABLET 1 TABLET PO (05:55)
[2025-08-27 06:13] LABS: Hematocrit 43.2 % (42.0-52.0); Hemoglobin 14.3 g/dL (14.0-18.0); Mean Corpuscular HGB Conc 33.1 g/dl (32-36); Mean Corpuscular Hemoglobin 31.2 pg (26-34); Mean Corpuscular Volume 94.3 fl (80-100); Platelet Count Result 208 k/mm3 (150-375); Red Blood Count 4.58 M/mm3 (4.6-6.20); White Blood Count 12.2 K/mm3 (4.5-10.0)
[2025-08-27 06:51] LABS: Anion Gap 5 mmol/L (4-12); Blood Urea Nitrogen 10 mg/dL (9-20); Calcium 8.8 mg/dL (8.4-10.2); Carbon Dioxide 30 mmol/L (22-30); Chloride 100 mmol/L (98-107); Estimated CRCL calculation 100 ml/min; Estimated Glomerular Filt Rate > 60; Glucose 108 mg/dL (65-110); Potassium 4.1 mmol/L (3.4-5.0); Sodium 135 mmol/L (137-145)
[2025-08-27] MEDS: ALVIMOPAN 12 MG CAPSULE PO (08:14)
[2025-08-27] MEDS: PANTOPRAZOLE 40 MG TABLET PO (08:14)
[2025-08-27] MEDS: LORATADINE 10 MG TABLET PO (08:14)
[2025-08-27] MEDS: ENOXAPARIN 40 MG/0.4 ML SYRINGE SUB-Q (08:14)
[2025-08-27] MEDS: EZETIMIBE 10 MG TABLET PO (08:14)
[2025-08-27] MEDS: oxyCODONE/ACETAMINOPHEN (*CRX) 10-325 MG TABLET 1 TAB PO (10:20)
--- NOTE | 2025-08-27 13:52 | PM.DS ---
DS: Admitting Diagnosis Discharge Date 08/27/2025 Admitting Diagnosis cecal polyp with dysplasia DS: Discharge Diagnosis Discharge Diagnosis (1) Cecal polyp: Code(s): K63.5 - Polyp of colon Status: Acute DS: Summary Hospital Course Reason for hospitalization: Patient is a 59-year-old man who has a family history of colon cancer. In November of 2024 he had a colonoscopy. This showed a 3 cm polyp in the cecum that appeared to be adenomatous. The polyp was removed and pathology showed tubulovillous adenoma with extensive, high grade, dysplasia. The dysplasia did not extend to the margin. The polyp had been thought to have been removed successfully, however, repeat colonoscopy 6 months later did show a recurrent 4 mm, flat, sessile recurrence. Pathology of this polyp showed tubulovillous adenoma. The recurrent polyp was not felt to be suitable for resection. Patient was seen in the office. He is taken to surgery at this time for hand access laparoscopic right colectomy with anastomosis. Patient has non insulin dependent diabetes. He has a history of pulmonary embolism but is no longer taking any anticoagulation. He does have a history of stable coronary artery disease. Hospital Course: patient underwent hand access laparoscopic right colectomy with ileotransverse anastomosis on 08/25/2025. Patient tolerated the surgery well and was transferred up to the medical-surgical floor for monitoring. He was slightly tachycardic later into the night. Patient continued to do well and improved clinically the following day. Bowel function returned. Pain was tolerated with IV and oral pain medication. Patient able to ambulate independently. diet was advanced and patient was able to tolerate without any nausea or vomiting. WBC elevated, likely postop reaction. On day of discharge, patient continued to improve. WBC downtrending. He still noted some incisional pain, as expected. He did become mildly tachycardic again early in the morning. Denies any palpitations. This could have been due to pain. Patient was given strict instructions to return if he developed any chest pain, shortness of breath or palpitations. Surgically stable for discharge with follow-up in [address] Ying. Status at Discharge Functional status at discharge: independent ambulation Overall status at discharge: patient is back to baseline Time Spent with Patient Time attestation: Total time spent providing and/or coordinating discharge services: Time spent: Less than 30 minutes Exam Const: General: comfortable and no acute distress Eyes: General: appearance normal, both eyes and all related structures Neck: Neck: supple Resp: Effort & Inspection: normal respiratory effort Cardio: Rate: tachycardic (106) GI: Inspection: distended GI Palp: Yes Tenderness to palpation present (GI) (epigastric region) and No Guarding due to palpation present (GI) Auscultation: normal bowel sounds Skin: General skin exam: normal color and no rashes or lesions noted Extrem: General: normal to inspection Psych: Mental Status: mental status grossly normal DS: Data Data Completed and Pending Pending studies at discharge: Pending at discharge 08/25/25 11:33 Surgical [PTH] Routine Labs on day of discharge: Labs from last 24 hours 08/27/25 05:57 WBC 12.2 H RBC 4.58 L Hgb 14.3 Hct 43.2 MCV 94.3 MCH 31.2 MCHC 33.1 RDW 13.4 Plt Count 208 MPV 8.5 Sodium 135 L Potassium 4.1 Chloride 100 Carbon Dioxide 30 Anion Gap 5 BUN 10 Creatinine 0.84 Estim Creat Clear Calc 100 Estimated GFR > 60 Glucose 108 Calcium 8.8 Procedures/Treatments: Procedures Operation Date: 08/25/25 09:00 Actual Procedure Side Surgeon p Hand Assisted Laparoscopic Right Colectomy Not Applicable Nacho Ying MD Discharge Plan Discharge Attending physician on discharge: Nacho Ying Discharging Clinician: Bre Matthews Anticipated Discharge Date/Time: 08/27/25 13:21 Patient Disposition: Home Activity: may shower Diet: heart healthy Wound Care Instructions: follow printed instructions Discharge Instructions: No lifting more than 10-15 pounds for 4-6 weeks or until otherwise instructed by your surgeon. OK to shower. No soaking in a bath, pool, or other body of water for the next two weeks. Up and walking 10-30 minutes 3 times a day. Resume previous home medications. Prescription medications sent to your pharmacy. Take Tylenol 500mg every 6 hours and Ibuprofen 600mg every 6 hours for the first 2 days, then as needed. You may apply ice to the surgical site as needed (30 min on, 30 min off). No driving for 3 days after surgery or while taking narcotic pain medication. You may resume your regular heart healthy diet. If you experience nausea, try dry toast, crackers, and 7-UP.? If nausea or vomiting persists, contact your surgeon?s office. Call the office at to schedule a follow up appointment in 10-14 days for wound check. Call the office or go to the Emergency Department for: Bleeding or increased redness or drainage from wounds, severe pain, vomiting, or fever greater than 101 degrees Patient Instructions: Antibiotic Form Patient Language: Slovak Stand Alone Forms: General Discharge Information Follow-up/Referrals: Nacho Ying MD [Physician, General Surgery] - Call for Appointment Referral Note: 2 weeks Discharge Medications: New oxycodone-acetaminophen 5-325 mg Tablet 1 - 2 tablet PO Q4H PRN (Reason: Pain Rated 4-6) Qty: 14 0RF Rx Instructions: Take 1-2 tablets every 4 hours as needed for pain. Do not exceed more than 12 tablets per day. Continued nitroglycerin 0.4 mg tablet, sublingual 0.4 mg sublingual Q5M PRN (Reason: chest pain) Qty: 25 0RF Patient Comments: not taken in months Rx Instructions: do not exceed 3 doses per episode ibuprofen 800 mg tablet 800 mg PO TID PRN (Reason: Pain) Qty: 90 11RF ezetimibe 10 mg tablet 10 mg PO DAILY Qty: 90 3RF aspirin 81 mg Tablet 81 mg PO DAILY loratadine [Claritin] 10 mg tablet 10 mg PO DAILY (DME) OneTouch Verio test strips Strip See Rx Instructions .Route Qty: 100 0RF Rx Instructions: daily Discontinued metronidazole 500 mg tablet 500 mg PO Q8H Qty: 3 0RF Rx Instructions: 1 tablet by mouth at 1:00pm, 2:00 pm, 11:00pm ciprofloxacin HCl 500 mg tablet 500 mg PO .COMPLEX Qty: 1 0RF Rx Instructions: 500 mg orally; 1 tablet by mouth at 2:00pm. Date of admission: 08/25/25 14:30 Primary Care Provider: Rei King Admitting Provider: Nacho Ying Attending physician on admission: Nacho Ying Condition: Improved
== END 2025-08-27 14:25 | disposition home or self-care (01) | DRG 331 ==
LOC: ANH3MED 14:54
PROVIDERS: Surgery; Admitting Provider Surgery; PCP Family Medicine Adolescent Medicine
PROC: 0DTF4ZZ Resection of Right Large Intestine, Percutaneous Endoscopic Approach (ICD-10-PCS; CPT 44204; principal; 2025-08-25 09:00)
DX: D12.0 Benign neoplasm of cecum (principal); E11.42 Type 2 diabetes mellitus with diabetic polyneuropathy; E78.2 Mixed hyperlipidemia; I25.10 Atherosclerotic heart disease of native coronary artery without angina pectoris; I10 Essential (primary) hypertension; Z79.82 Long term (current) use of aspirin; Z86.711 Personal history of pulmonary embolism; Z87.891 Personal history of nicotine dependence; Z95.1 Presence of aortocoronary bypass graft; Z90.49 Acquired absence of other specified parts of digestive tract
CPT/HCPCS: 36415; 80048; 85027; 88309; J0690; A9270; J1100; J1171; J1200; J1650; J1836; J1885; J2003; J2250; J2270; J2405; J2704; J3010; J7120